=== PATIENT | male | born 1975 | race Caucasian/White ===

== ENCOUNTER 2023-05-11 11:19 | Emergency (ER) | payer BC, MEDICAID, SELFPAY ==
[2023-05-11 11:56] VITALS: BP 143/96; PULSE 73; RESP 16; TEMP 36.9; O2SAT 99
--- NOTE | 2023-05-11 12:12 | ED.BACK1 ---
HPI - Back Pain/Injury General Chief Complaint: Back Pain/Injury Stated Complaint: BACK PAIN Time Seen by Provider: 05/11/23 12:06 Source: patient Mode of arrival: walk-in Limitations: no limitations History of Present Illness HPI Narrative: pain along the right lower back. 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 he said he has been very busy and working extra hours. He saw Lydia Manuel about 3 weeks ago and was diagnosed with back strain. He had blood testing that was unremarkable, including renal panel bc his bother has renal disease. No meds prescribed. Pain flared up a few days ago and has been increased since then. No bowel or bladder symptoms. No fever or chills. No abdominal pain. Related Data Home Medications Medication Instructions Recorded Confirmed gabapentin 600 mg tablet 600 mg PO Q12H 05/11/23 05/11/23 lamotrigine 200 mg tablet 300 mg PO DAILY 05/11/23 05/11/23 lurasidone 80 mg tablet 80 mg PO DAILY 05/11/23 05/11/23 sertraline 50 mg tablet 50 mg PO Q24H 05/11/23 05/11/23 Previous Rx's Medication Instructions Recorded methocarbamol 750 mg tablet 750 mg PO Q6H PRN back pain #30 05/11/23 tabs nabumetone 1,000 mg tablet 1,000 mg PO BID #20 tabs 05/11/23 (Relafen DS) Allergies Allergy/AdvReac Type Severity Reaction Status Date / Time prednisone Allergy Severe Agitated Verified 05/11/23 11:56 Exam Narrative Exam Narrative: Nurses notes and vital signs reviewed and patient is not hypoxic. afebrile General: Well-appearing and in no apparent distress. Skin: Warm, dry, no pallor noted. No rash. Head: Normocephalic, atraumatic. Neck: Supple, non-tender. Eye: Pupils are equal, round and EOMI. No scleral icterus. Cardiovascular: normal peripheral perfusion Respiratory: No accessory muscle use or respiratory distress. Back: No midline thoracic or lumbar vertebral tenderness. No CVA tenderness. Right paralumbar soft tissue tenderness. No skin rash. Donte buttock tenderness Musculoskeletal: normal ROM GI: Abdomen is soft, non-distended. Normal bowel sounds. No masses appreciated. No tenderness to palpation. No rebound, guarding, or rigidity noted. No rash Neurological: A&O x4. No cranial nerve dysfunction observed. No truncal ataxia. Moves all extremities. Sensation intact. Intact L5 and S1 reflexes Psychiatric: Cooperative and interactive. Normal mood and affect. Constitutional Vital Signs - 24 hr 05/11/23 11:56 Temperature 98.5 F Pulse Rate [Monitor] 73 Respiratory Rate 16 Blood Pressure [Left Arm] 143/96 H Pulse Oximetry 99 Oxygen Delivery Method Room Air Course Vital Signs Vital signs: Vital Signs Temperature 98.5 F 05/11/23 11:56 Pulse Rate 73 05/11/23 11:56 Respiratory Rate 16 05/11/23 11:56 Blood Pressure 143/96 H 05/11/23 11:56 Pulse Oximetry 99 05/11/23 11:56 Oxygen Delivery Method Room Air 05/11/23 11:56 Temperature 98.5 F 05/11/23 11:56 Pulse Rate 73 05/11/23 11:56 Respiratory Rate 16 05/11/23 11:56 Blood Pressure 143/96 H 05/11/23 11:56 Pulse Oximetry 99 05/11/23 11:56 Oxygen Delivery Method Room Air 05/11/23 11:56 MDM - Back Pain/Injury MDM Narrative Medical decision making narrative: patient with strain of the right paralumbar soft tissue. No neuro deficit or midline vertebral tenderness to suggest acute cauda equina syndrome. No blunt trauma or midline tenderness suggesting need for imaging. No urinary symptoms or abdominal pain to suggest kidney stones. Patient and I discussed his history, exam findings and diagnosis. Discussed out-patient treatment and limitations for healing based on his needd to continue working an active job. Discharged home with prescriptions for Relafen and Robaxin and information of back exercises and core strengthening. PCP follow up encouraged. Discharge Plan Discharge Chief Complaint: Back Pain/Injury Clinical Impression: Strain of lumbar region Patient Disposition: Home, Self-Care Time of Disposition Decision: 12:11 Prescriptions / Home Meds: New Relafen DS 1,000 mg tablet 1,000 mg PO BID Qty: 20 0RF methocarbamol 750 mg tablet 750 mg PO Q6H PRN (Reason: back pain) Qty: 30 0RF No Action gabapentin 600 mg tablet 600 mg PO Q12H lamotrigine 200 mg tablet 300 mg PO DAILY lurasidone 80 mg tablet 80 mg PO DAILY sertraline 50 mg tablet 50 mg PO Q24H Instructions: Low Back Strain (ED), Lower Back Exercises (ED), Core Strengthening Exercises (ED) Stand Alone Forms: Portal Instructions Referrals: Lydia Manuel [Primary Care Provider] - 1 week
== END 2023-05-11 12:43 | disposition home or self-care (01) ==
PROVIDERS: Emergency Provider Emergency Medicine; PCP Nurse Practitioner
DX: S39.012A Strain of muscle, fascia and tendon of lower back, initial encounter (principal); X50.9XXA Other and unspecified overexertion or strenuous movements or postures, initial encounter; Z79.899 Other long term (current) drug therapy
CPT/HCPCS: 99283

== ENCOUNTER 2024-07-09 15:59 | Emergency (ER) | payer BC, MEDICAID, SELFPAY ==
[2024-07-09 16:05] VITALS: BP 117/78; PULSE 78; TEMP 36.6; O2SAT 98; BMI 32.5
--- NOTE | 2024-07-09 16:12 | ED.DENTAL1 ---
HPI - Dental/Oral General Chief complaint: Dental/Oral Stated complaint: DENTAL Time Seen by Provider: 07/09/24 16:09 Source: patient Mode of arrival: walk-in Limitations: no limitations History of Present Illness HPI Narrative: 49 year old male presents to the ED for right lower dental pain. Onset was 2 days ago. He had a tooth extracted from the area 2 weeks ago. Reports some relief with ice. Denies fever, chills, injury, SOB, difficulty swallowing. He has an appointment tomorrow with his dentist. He has tried Motrin and Aleve without relief; last dose was early this morning. Related Data Home Medications ?Medication ?Instructions ?Recorded ?Confirmed gabapentin 600 mg tablet 600 mg PO Q12H 05/11/23 05/11/23 lamotrigine 200 mg tablet 300 mg PO DAILY 05/11/23 07/09/24 lurasidone 80 mg tablet 80 mg PO DAILY 05/11/23 07/09/24 sertraline 50 mg tablet 50 mg PO Q24H 05/11/23 07/09/24 Previous Rx's ?Medication ?Instructions ?Recorded methocarbamol 750 mg tablet 750 mg PO Q6H PRN back pain #30 05/11/23 tabs nabumetone 1,000 mg tablet 1,000 mg PO BID #20 tabs 05/11/23 (Relafen DS) hydrocodone 5 mg-acetaminophen 325 1 tab PO Q8H PRN pain 4 days #12 07/09/24 mg tablet tabs penicillin V potassium 500 mg 500 mg PO Q6H 10 days #40 tabs 07/09/24 tablet Allergies Allergy/AdvReac Type Severity Reaction Status Date / Time prednisone Allergy Severe Agitated Verified 07/09/24 16:04 Review of Systems ROS Constitutional Denies: fever or chills Eyes Denies: change in vision Ears, nose, mouth, and throat Denies: throat pain, neck pain or difficulty swallowing Cardiovascular Denies: chest pain Respiratory Denies: shortness of breath Musculoskeletal Denies: neck pain Neurological Denies: headache Exam Constitutional Vital Signs, click to edit/add: Last Vital Signs Temp 97.9 F 07/09/24 16:05 Pulse 78 07/09/24 16:05 Resp 20 07/09/24 16:05 BP 117/78 07/09/24 16:05 Pulse Ox 98 07/09/24 16:05 HENMT Face and sinus: normal facial exam Other: Tooth extraction site to right lower gums noted. Mild swelling, irritation noted. No drainable abscess. No facial swelling. No swelling to floor of mouth. Pt speaking in full sentences, handling secretions well. Eye Common normals: conjunctivae normal and no scleral icterus Neck & C-Spine Common normals: supple Chest Chest: symmetrical chest wall rise Respiratory Common normals: normal respiratory effort Effort & inspection: able to speak in complete sentences Cardio Common normals: regular rate Neuro Common normals: oriented x3 Sensorium/orientation: awake and alert Speech: speech normal Course Vital Signs Vital signs: Vital Signs Temperature 97.9 F 07/09/24 16:05 Pulse Rate 78 07/09/24 16:05 Respiratory Rate 20 07/09/24 16:05 Blood Pressure 117/78 07/09/24 16:05 Pulse Oximetry 98 07/09/24 16:05 Temperature 97.9 F 07/09/24 16:05 Pulse Rate 78 07/09/24 16:05 Respiratory Rate 20 07/09/24 16:05 Blood Pressure 117/78 07/09/24 16:05 Pulse Oximetry 98 07/09/24 16:05 MDM - Dental/Oral MDM Narrative Medical decision making narrative: OARRS review was attempted, but was unavailable. Prescriptions were provided for PCN and norco. Follow up with the dentist tomorrow as scheduled. He was medicated with Toradol and PCN here. Return precautions were discussed. Differential Diagnosis Differential diagnosis: Likely gingival abscess, dental caries, toothache and dental abscess Discharge Plan Discharge Stand Alone Forms: Work/School Release, Portal Instructions Chief Complaint: Dental/Oral Clinical Impression: Pain, dental Patient Disposition: Home, Self-Care Time of Disposition Decision: 16:18 Condition: Good Mode of Transportation: Private Vehicle Prescriptions / Home Meds: New penicillin V potassium 500 mg tablet 500 mg PO Q6H 10 Days Qty: 40 0RF hydrocodone-acetaminophen 5-325 mg tablet 1 tab PO Q8H PRN (Reason: pain) 4 Days Qty: 12 0RF No Action gabapentin 600 mg tablet 600 mg PO Q12H lamotrigine 200 mg tablet 300 mg PO DAILY lurasidone 80 mg tablet 80 mg PO DAILY sertraline 50 mg tablet 50 mg PO Q24H Relafen DS 1,000 mg tablet 1,000 mg PO BID Qty: 20 0RF methocarbamol 750 mg tablet 750 mg PO Q6H PRN (Reason: back pain) Qty: 30 0RF Print Language: Belarusian Instructions: Toothache (ED) Additional Instructions: Return to the ED for new or worsening symptoms. Follow up with your dentist tomorrow as scheduled. Referrals: SANDRA BRUNO [Primary Care Provider] - 1 week Discharge Date/Time: 07/09/24 16:35
[2024-07-09] MEDS: KETOROLAC TROMETHAMINE 30 MG/ML VIAL IM (16:24)
[2024-07-09] MEDS: PENICILLIN V POTASSIUM 250 MG TABLET 500 MG PO (16:24)
== END 2024-07-09 16:35 | disposition home or self-care (01) ==
PROVIDERS: Emergency Provider Emergency Medicine; PCP Family Medicine
DX: K08.89 Other specified disorders of teeth and supporting structures (principal)
CPT/HCPCS: 96372; 99284; J1885

== ENCOUNTER 2025-01-07 08:40 | Outpatient (OUT) | payer BC, MEDICAID, SELFPAY ==
--- NOTE | 2025-01-07 08:54 | XR_ITS ---
The [address] [address] Patient Name: CASA ANDERSON MRN: [id number] date: 1975 Sex: M Assigned Patient Location: RAD Current Patient Location: [facility] Accession/Order Number: [id number] Exam Date: 01/07/2025 10:28 Report Date: 01/07/2025 10:32 At the request of: SANDRA BRUNO Procedure: XR hand RT min 3V RIGHT HAND - 3 views CLINICAL DATA: Chronic pain at the third metacarpal phalangeal joint. No injury. COMPARISON: None AP, lateral and oblique views were obtained. There is no evidence of fracture or dislocation. No disproportionate joint space narrowing is noted. There is minor scattered marginal spurring, greatest at the base of the distal phalanx of the fifth finger. Soft tissue swelling is visualized over the dorsum of the metacarpal heads. XR/XR hand RT min 3V IMPRESSION: MINOR DEGENERATIVE CHANGES. LOCALIZED SOFT TISSUE SWELLING OVER THE METACARPAL HEADS. NO ACUTE BONY FINDINGS. Impression dictated by: Lucie An M.D.01/07/2025 10:32 AM Dictation Location: [employer] Electronically authenticated by: [id number] Date: 01/07/2025 10:32
--- OUTSIDE RECORDS SUMMARY | 2025-01-07 09:02 | XMS_ITS | CCD ---
Author Organization [facility] Care Team Providers Care City Planning Engineer Name Role Phone MICHAEL RUIZ Unavailable Unavailable MINH BRUNO Unavailable Unavailable HARSHA BELLA Referring Unavailable MINH BRUNO Primary Care Unavailable GAMA MERCEDES Attending Unavailable GAMA MERCEDES Admitting Unavailable SC Procedure Practitioner Unavailab le GAMA MERCEDES Surgeon Unavailable SC Procedure Practitioner Unavailab CHARLI Sagastume Surgeon Unavailable HARESH CAZARES Admitting Unavailable HARESH CAZARES Attending Unavailable MINH BRUNO Referring Unavailable MINH BRUNO Primary Care Unavailable Nasra London Unavailable Rea Soares Unavailable AICHHOLBret, YUN LYDIA Attending Unavailable AICHHOLZ, YUN LYDIA Consulting Unavailable AICHHOLZ, YUN LYDIA Primary Care Unavailable AICHHOLBret, YUN LYDIA Admitting Unavailable Miko Sr.Minh [facility] Provider Nasra London CNP Unavailable HOUSE MINH LAY [facility] VLADIMIR Lewis Referring Unavailable VLADIMIR WILLIS Attending Unavailable HOUSE SR, MINH [facility] VLADIMIR Lewis Referring Unavailable WILMOT MINH LAY [facility] Rula Pompa Unavailable House Sr., Minh MOODY [facility] Prov ider Unallocated , [place] Provider Primary Care Provi magdi Stepan CHEMIST PHARMACEUTICAL-Kait NASCIMENTO Unavailable Unallocated , [place] Provider Primary Care Provi magdi Ana-Nossek CHEMIST PHARMACEUTICAL-CLINICAL STAFF RN, Kait M Unavailable Ana-Nossek CHEMIST PHARMACEUTICAL-CLINICAL STAFF RN, Kait M Unavailable ANA-NOSSEK, KAIT M Attending Unavailab le ANA-NOSSEK, KAIT M Attending Unavailab le ANA-NOSSEK, KAIT M Attending Unavailab le ANA-NOSSEK, KAIT M Attending Unavailab le ANA-NOSSEK, KAIT M Attending Unavailab le ANA-NOSSEK, KAIT M Attending Unavailab le ANA-NOSSEK, KAIT M Attending Unavailab le ANA-NOSSEK, KAIT M Attending Unavailab le ANA-NOSSEK, KAIT M Attending Unavailab le HOUSE, MINH P Primary Care Unavailable HOUSE, DO MINH P Attending Unavailable HOUSE, DO MINH P Attending Unavailable HOUSE, MINH P Primary Care Unavailable HOUSE, DO MINH P Attending Unavailable HOUSE, MINH P Primary Care Unavailable Allergies Allergy Classification Reported Allergen(s) Allergy Type Date of Onset Reaction(s) Facility (3 sources) predniSONE; Translations: [predniSONE] Drug Allergy 0 [facility] Repository (8 sources) prednisoLONE; Translations: [PREDNISOLONE] Drug Allergy 6 Mental Status Change [facility] Work Phone: (12 sources) Prednisone Allergy to substance 3 [facility] Medications Current Medications Medication Drug Class(es) Dates Sig (Normalized) Sig (Original) [id number] 200 actuat albuterol 0.09 mg/actuat metered dose inhaler (1 source) beta2-Adrenergic Agonist Start: 07-30-2021 take 2 puff(s) by inhalation every four hours as needed Albuterol Sulfate HFA 108 (90 Base) MCG/ACT 2 puffs as needed Inhalation every 4 hrs Jul, Active ALPRAZolam 0.5 mg oral tablet (17 sources) Benzodiazepine Start: 04-07-2022 End: 11-14-2024 take 1 tablet by mouth every twenty-four hours as needed for anxiety and anxiety and anxiety ALPRAZolam (Xanax) 0.5 MG tablet Indications: Anxiety Take 1 tablet (0.5 mg) by mouth Daily as needed for anxiety (1 tablet daily prn) 30 tablet 10/15/2024 Active take 1 tablet by mirtha th every twenty-four hours as needed ALPRAZolam (XANAX) 1 mg ORAL tablet Take 1 mg by mouth at bedtime as needed. 0 Active Comment on above: Take 1 mg by mouth a t bedtime as needed. 24 hr amphetamine aspartate 5 mg / amphetamine sulfate 5 mg / dextroamphetamine saccharate 5 mg / dextroamphetamine sulfate 5 mg extended release oral capsule (11 sources) Central Nervous System Stimulant Start: 10-22-20 take 1 capsule by mouth every twenty-four hours in the morning amphetamine-dextroam phetamine XR (Adderall XR) 20 MG 24 hr capsule Indications: ADD (attention deficit disorder) without hyperactivity Take 1 capsule (20 mg) by mouth in the morning. Do not crush or chew.. 30 capsule 10/22/2024 Active take 1 capsule by mo uth once daily as needed, then take 1 capsule by mouth every twenty-four hours as needed amphetamine-dextroamphetamine XR (Addera ll XR) 20 MG 24 hr capsule Take 20 mg by mouth Daily as needed Do not crush or chew. Active doxycycline monohydrate 100 mg oral capsule (1 source) Tetracycline-class Drug Start: 08-13-2021 take 1 capsule by mouth every twelve hours Doxycycline Monohydrate 100 MG 1 capsule Orally every 12 hrs for 7 days Jul, Active 120 actuat fluticasone propionate 0.22 mg/actuat metered dose inhaler (1 source) Corticosteroid Start: 08-17-2021 take 1 puff(s) by inhalation twice daily Flovent HFA 220 MCG/ACT 1 puff Inhalation Twice a day for 30 day(s) Aug, Active lamoTRIgine 200 mg oral tablet (20 sources) Mood Stabilizer, Anti-epileptic Agent Start: 12-13-2024 End: 03-13-2025 take 1.5 tablets by mouth once daily lamoTRIgine (LaMICtal) 200 MG tablet Indications: Bipolar 1 disorder, depressed, partial remission (CMS/HCC) Take 1.5 tablets (300 mg) by mouth Daily 135 tablet 12/13/2024 03/13/2025 Active Start: 02-13-2024 End: 12-09-2024 take 1.5 tablets by mouth once daily lamoTRIgine (LaMICtal) 200 MG tablet Indications: Bipolar 1 disorder, depressed, partial remission (CMS/HCC) Take 1.5 tablets (300 mg) by mouth Daily 135 tablet 07/18/2024 10/16/2024 Active take 1 tablet by mirtha th once daily lamoTRIgine (LAMICTAL) 200 mg tablet Take 200 mg by mouth once daily. 0 Active lamoTRIgine Acti ve Comment on above: Take 200 mg by mouth once daily. lurasidone hydrochloride 80 mg oral tablet (20 sources) Atypical Antipsychotic Start: 12-13-19 End: 03-13-20 take 1 tablet by mouth at mealtime lurasidone (Latuda) 80 MG tablet Indications: Bipolar 1 disorder, depressed, partial remission (CMS/HCC) Take 1 tablet (80 mg) by mouth in the morning. Take with meals. 90 tablet 12/13/2024 03/13/2025 Active Start: 02-13-2024 End: 12-09-2024 take 1 tablet by mouth at mealtime lurasidone (Latuda) 80 MG tablet Indications: Bipolar 1 disorder, depressed, partial remission (CMS/HCC) Take 1 tablet (80 mg) by mouth in the morning. Take with meals. 90 tablet 07/18/2024 10/16/2024 Active take 1 tablet by mirtha th once daily lurasidone (LATUDA) 40 mg tablet Take 40 mg by mouth once daily. 0 Active take 1 tablet by mirtha th every twenty-four hours Latuda 80 MG 1 tablet Orally Once a day Active Comment on above: Take 40 mg by mouth once daily. sertraline 100 mg oral tablet (19 sources) Serotonin Reuptake Inhibitor Start: 09-10-2024 End: 09-10-2025 take 1 tablet by mouth once daily sertraline (Zoloft) 100 MG tablet Indications: Bipolar 1 disorder, depressed, partial remission (CMS/HCC) Take 1 tablet (100 mg) by mouth Daily 90 tablet 12/13/2024 03/13/2025 Active Start: 02-13-2024 End: 10-16-2024 take 1 tablet by mouth once daily sertraline (Zoloft) 50 MG tablet Indications: Mixed obsessional thoughts and acts (CMS/HCC) Take 1 tablet (50 mg) by mouth Daily 90 tablet 07/18/2024 10/16/2024 Active take 1 tablet by mirtha th once daily Sertraline HCl 50 MG 1 tablet Orally Once a day Not-Taking traZODone (1 source) Serotonin Reuptake Inhibitor traZODone HCl Active valACYclovir (1 source) Herpesvirus Nucleoside Analog DNA Polymerase Inhibitor, Herpes Simplex Virus Nucleoside Analog DNA Polymerase Inhibitor, Herpes Zoster Virus Nucleoside Analog DNA Polymerase Inhibitor valACYclovir HCl Ac tive zaleplon 10 mg oral capsule (5 sources) gamma-Aminobutyric Acid A Receptor Agonist Start: 09-10-2024 End: 11-09-2024 zaleplon (Sonata) 10 MG capsule Indications: Insomnia due to mental condition Take 1 capsule (10 mg) by mouth as needed at bedtime for sleep 30 capsule 1 09/10/2024 11/09/2024 Active Completed/Discontinued Medications Medication Drug Class(es) Dates Sig (Normalized) Sig (Original) azithromycin 250 mg oral tablet (1 source) Macrolide Antimicrobial Start: 07-30-2021 Azithromycin 250 MG 2 tablets on the first day, then 1 tablet daily for 4 days Orally Once a day for 5 day(s) Jul, Not-Taking cefuroxime 500 mg oral tablet (1 source) Cephalosporin Antibacterial Start: 07-30-2021 take 1 tablet by mouth every twelve hours Cefuroxime Axetil 500 MG 1 tablet Orally every 12 hrs for 7 days Jul, Not-Taking eszopiclone 3 mg oral tablet (3 sources) Start: 06-14-2024 End: 07-18-2024 eszopiclone (Lunesta) 3 MG tablet Indications: Insomnia due to mental condition Take 1 tablet (3 mg) by mouth as needed at bedtime for sleep Take immediately before bedtime 30 tablet 1 06/14/2024 07/18/2024 Discontinued (Ineffective) gabapentin 300 mg oral capsule (7 sources) Anti-epileptic Agent take 1 capsule by mouth three times daily gabapentin (NEURONTIN) 300 mg capsule Take 300 mg by mouth three times daily. 0 Active take 1 tablet by mirtha th every twelve hours Gabapentin 600 MG 1 tablet Orally bid Active Gabapentin Activ e Comment on above: Take 300 mg by mouth three times daily. ibuprofen 800 mg oral tablet (3 sources) Nonsteroidal Anti-inflammatory Drug Start: 6 take 1 tablet by mouth every eight hours as needed ibuprofen (MOTRIN) 800 mg tablet Take 1 tablet by mouth every 8 hours as needed (with food.). 90 tablet 2 12/18/2015 Active Comment on above: Take 1 tablet by mirtha every 8 hours as needed (with food.). Ketorolac (1 source) Nonsteroidal Anti-inflammatory Drug, Cyclooxygenase Inhibitor Start: 6 Toradol per 15 mg May, 30 mg triamcinolone acetonide 40 mg/ml injectable suspension (1 source) Corticosteroid Start: 3 Kenalog-40 Jun, 80 mg Problems Active Problems Problem Classification Problem Date Documented Date Episodic/Chronic Allergic reactions (1 source) Unspecified contact dermatitis, unspecified cause Episodic Anxiety disorders (20 sources) Obsessional thoughts; Translations: [Mixed obsessional thoughts and acts] Onset: 03-22-2023 03-22-2023 Chronic Disorders usually diagnosed in infancy, childhood, or adolescence (16 sources) Attention deficit hyperactivity disorder, predominantly inattentive type; Translations: [Other specified behavioral and emotional disorders with onset usually occurring in childhood and adolescence] Onset: 03-22-2023 03-22-2023 Chronic Malaise and fatigue (1 source) Other fatigue; Translations: [OTHER FATIGUE] Onset: 03-24-2023 Episodic Miscellaneous mental health disorders (20 sources) Inhibited sexual desire; 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] Onset: 05-14-2024 05-14-2024 Chronic Mood disorders (20 sources) Depressed bipolar I disorder in partial remission; Translations: [Bipolar disorder, in partial remission, most recent episode depressed] Onset: 03-22-2023 03-22-2023 Chronic Other connective tissue disease (7 sources) Biceps tendinitis; Translations: [Bicipital tendinitis, left shoulder] Onset: 03-24-2016 03-24-2016 Episodic Other endocrine disorders (4 sources) Hypotestosteronism; Translations: [Testicular hypofunction] Chronic Other endocrine disorders (4 sources) Testicular hypofunction; Translations: [TESTICULAR HYPOFUNCTION] Onset: 03-21-2023 Chronic Other lower respiratory disease (3 sources) Post-inflammatory pulmonary fibrosis; Translations: [Pulmonary fibrosis, unspecified] Chronic Other lower respiratory disease (1 source) Pulmonary fibrosis, unspecified Onset: 10-07-2021 Resolved: 10-07-2021 Chronic Other male genital disorders (1 source) Male erectile dysfunction, unspecified; Translations: [Male erectile dysfunction, unspecified] Onset: 10-02-2018 Chronic Other nervous system disorders (1 source) Other chronic pain; Translations: [Chronic pain of left elbow] Onset: 06-06-2023 Chronic Other non-traumatic joint disorders (1 source) Pain in left elbow; Translations: [Chronic pain of left elbow] Onset: 06-06-2023 Episodic Other non-traumatic joint disorders (1 source) Chronic pain of left upper limb; Translations: [Pain in left elbow] 06-06-2023 Episodic Other nutritional; endocrine; and metabolic disorders (1 source) Obesity, unspecified; Translations: [OBESITY UNSPECIFIED] Onset: 03-24-2023 Chronic Residual codes; unclassified (1 source) Pain, unspecified; Translations: [Pain] Onset: 06-06-2023 Episodic Residual codes; unclassified (1 source) Pain; Translations: [Pain, unspecified] 06-06-2023 Episodic Unclassified (2 sources) Male erectile dysfunction, unspecified / N52.9(ICD-9) Onset: 10-02-2018 Unclassified (1 source) Abnormal electrocardiogram [ECG] [EKG] / R94.31(ICD-9) Onset: 10-02-2018 Unclassified (1 source) Personal history of other diseases of the circulatory system / Z86.79(ICD-9) Onset: 10-02-2018 Unclassified (1 source) Family hx of ischem heart dis and oth dis of the circ sys / Z82.49(ICD-9) Onset: 10-02-2018 Unclassified (1 source) Personal history of nicotine dependence / Z87.891(ICD-9) Onset: 10-02-2018 Past or Other Problems Problem Classification Problem Date Documented Date Episodic/Chronic Mood disorders (12 sources) Mood disorders Onset: 05-24-2023 05-24-2023 Other connective tissue disease (1 source) Bicipital tendinitis, left shoulder; Translations: [Biceps tendinitis on left] Onset: 03-24-2016 Episodic Pneumonia (except that caused by tuberculosis or sexually transmitted disease) (1 source) Pneumonia, unspecified organism; Translations: [Postobstructive pneumonia J18.9] Onset: 08-13-2021 Resolved: 08-13-2021 Episodic Residual codes; unclassified (12 sources) History of noncompliance with medication regimen; Translations: [History of medication noncompliance] Onset: 05-03-2024 05-03-2024 Episodic Sprains and strains (3 sources) Strain of biceps brachii muscle; Translations: [Strain of muscle, fascia and tendon of other parts of biceps, unspecified arm, initial encounter] Onset: 11-27-2015 11-27-2015 Episodic Unclassified (1 source) 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 Patient tolerated well. No adverse reactions. [Electronically Signed on: 01/03/2025 10:46 EST] Lucy Candelaria MA [Verified on: 01/03/2025 10:46 EST] Lucy Candelaria MA [facility] Outside Recordson 07-10-2024 Outside Records [id number] [facility]24 Patient Handout [id number] Patient Handout [id number]# 1[facility] CNOV Office Visit (ORAVON ) CASA ANDERSON ([id number]) 1975 M Date Time Provider Department 06/06/23 9:45 AM VLADIMIR WILLIS During your visit today, we recorded the following information about you: Weight Height 122.5 kg 1.829 m Vladimir Willis DO 06/06/2023 9:50 AM Signed [facility] Office Visit Documentation Note [facility] Sports Medicine Orthopaedic and Rheumatologic [place] HISTORY OF PRESENT ILLNESS (HPI) CHIEF COMPLAINT / REASON FOR VISIT SERVICE DATE: June 06, 2023 PCP: Lydia Manuel CNP Casa Anderson is here today at request of Lydia Manuel CNP specifically for consultation of my opinion in regards to the chief complaint listed below. Correspondence will be shared today via the [facility] electronic health record or through regular mail, where applicable. 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 He describes the pain as Sharp, Throbbing. The pain is Intermittent, and has lasted for 11 Months. Interventions tried include Medication. Charan. He is currently taking ibuprofen. Most recent elbow imaging was completed on 06/06/2023 (XR ELBOW SPECIAL VIEWS AP/LAT/OTHER LEFT) . PREVIOUS TREATMENTS: Treatments so far have included no medications, physical therapy, injections, bracing, advanced imaging or surgical evaluation. REVIEW OF SYSTEMS ROS: Neurologic: Any numbness or tingling? No Endocrine: Any diagnosis of diabetes? No ALLERGIES ALLERGIES Allergen Reactions Prednisolone Mental Status Change PAST MEDICAL HISTORY PAST MEDICAL HISTORY Diagnosis Date Generalized anxiety disorder Anxiety, Generalized PHYSICAL EXAMINATION Body Habitus: well nourished and no acute distress Psych: normal Sensation: sensation to light touch is grossly normal bilaterally Skin: Color, texture, turgor normal. No rashes or lesions Swelling: no swelling noted Gait: Normal, the patient did not have trouble getting onto the exam table. ORTHO EXAM: Ortho Exam Elbow extension to 7-10 degree loss Pain anterior bicep/distal Hook negative but painful No proximal bicep pain No posterior tricep pain or weakness. Medial and lateral elbow stable IMAGING/LABORATORY IMAGING: Final results and radiologist's interpretation, available in the [facility] health record. Images were reviewed with the patient/family members in the office today. My personal interpretation of the performed imaging is chronic degenerative changes. Last XR Elbow - Impression Only XR ELBOW SPECIAL VIEWS AP/LAT/OTHER LEFT Exam End: 06/06/2023 8:51 AM (Final result) Impression: IMPRESSION: No fracture or malalignment. Joint spaces are maintained. There are enthesophytes at the common flexor tendon origin and triceps insertion. Manager Software Development: OLINDA ... Last US Elbow - Impression Only US ELBOW RT Collected: 03/01/2016 10:13 AM (Final result) Impression: IMPRESSION: Bilateral distal biceps tendinosis as described. No high-grade tearing. Manager Software Development: LAUREN Transcribe Date/Time: Mar 01 2016 10:19A ... 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 MSK US anterior bicep - warranted at this time. Successful RIGHT elbow PRP in past Follow up: Lives [place] For [employer] prior to visit: No additional imaging warranted. Written instructions (see patient instructions) and verbal health education given to patient. Patient verbalizes understanding and agrees with the treatment plan. Vladimir Willis D.O. [facility] Orthopaedic and Rheumatologic Dental Office Manager, [facility] AND Liza. Program Team Physician, [facility] [employer] Consulting Physician, [place] Katina Recinos, Bd Special Education Teacher [phone] Allergies As of Date: 06/06/2023 Noted Allergy Reaction PREDNISOLONE 11/27/2015 1 - Mental Status Change Date Reviewed: 06/06/2023 Reviewed by: Bryant Ashby-JASON Webber - Fully Assessed Reason for Visit: New [[id number]] Primary Visit Diagnosis:Bic (more content not included)... Normal [facility] US ELBOW LEFTon 06-06-2023 [facility] US ELBOW LTon 06-06-2023 US ELBOW LT * * *Final Report* * * DATE OF EXAM: Jun 06 2023 10:19AM AFU 1133 - US ELBOW LT / PROCEDURE REASON: multiple diagnoses * * * * Physician Interpretation * * * * MSK_US LEFT ANTERIOR ELBOW ULTRASOUND: Clinical information:Left distal biceps pain. Technique: Grayscale, power Doppler and dynamic evaluation of the left anterior elbow. Static ultrasound images were documented. Findings: ELBOW JOINT SPACE: No joint effusion. Joint space is grossly maintained. BICEPS TENDON: Tendinosis: Moderate focally at the insertion. Tearing: Minimal intrasubstance fraying medially. Power Doppler: None. Bony Attachment: No hypertrophic changes. RADIAL NERVE: Normal ultrasound appearance of the posterior interosseous nerve. Normal ultrasound appearance of the superficial radial nerve. MUSCLES: The musculature around the anterior elbow is unremarkable. IMPRESSION: MODERATE INSERTIONAL DISTAL BICEPS TENDINOSIS WITHOUT HYPEREMIA OR HIGH-GRADE TEAR. Manager Software Development: PSCB Transcribe Date/Time: Jun 06 2023 10:56A Dictated by : CASA PHAN MD This examination was interpreted and the report reviewed and electronically signed by: CASA PHAN MD on Jun 06 2023 11:30AM EST [id number] Normal [facility] XR ELBOW 3V AP/LAT/OTHER LTo n 06-06-2023 XR ELBOW 3V AP/LAT/OTHER LT * * *Final Report* * * DATE OF EXAM: Jun 06 2023 8:51AM AFR [id number] - XR ELBOW 3V AP/LAT/OTHER LT / PROCEDURE REASON: Pain * * * * Physician Interpretation * * * * EXAMINATION / TECHNIQUE: XR ELBOW 3V AP/LAT/OTHER LT HISTORY: LEFT ELBOW PAIN SINCE JUL 2022 POST ROLLING A LOG Pain COMPARISON: 11/27/2015. RESULT: See impression. IMPRESSION: No fracture or malalignment. Joint spaces are maintained. There are enthesophytes at the common flexor tendon origin and triceps insertion. Manager Software Development: OLINDA Transcribe Date/Time: Jun 06 2023 8:53A Dictated by : ART LOUIS MD This examination was interpreted and the report reviewed and electronically signed by: ART LOUIS MD on Jun 06 2023 8:54AM EST [id number] Normal [facility] XR ELBOW SPECIAL VIEWS AP/LA T/OTHER LEFTon 06-06-2023 [facility] CNPNon 03-28-2023 CNPN Telephone (4CQ) CASA ANDERSON ([id number]) 1975 M Date Time Provider Department 03/28/23 VLADIMIR WILLIS 4CQ During your visit today, we recorded the following information about you: uSe Fleming 03/28/2023 1:18 PM Signed Casa Anderson is calling Vladimir Willis DO today with concern regarding a referral that was faxed on 03/21 from Lydia Deng at [facility]. Wants to confirm it was received. Please call [phone] to confirm. No chief complaint on file. Patient has been identified by name and birthdate. Duration of symptoms: Person calling: Call patient at: [phone] (home) [phone] (work) [phone] (cell) Was an appointment scheduled: Closing statement: Sue Shearer RN 04/13/2023 11:27 AM Signed No answer upon call. message left. Consult on file. Appointment can be made by calling [phone] Elías Shearer RN, BSN Allergies As of Date: 03/28/2023 Noted Allergy Reaction PREDNISOLONE 11/27/2015 1 - Mental Status Change Date Reviewed: 05/01/2021 Reviewed by: Eligio Gutierrez - Fully Assessed Reason for Visit: Appointment [[id number]] Prescriptions as of 04/13/2023 - gabapentin (NEURONTIN) 300 mg capsule Take 300 mg by mouth three times daily. - lamoTRIgine (LAMICTAL) 200 mg tablet Take 200 mg by mouth once daily. - lurasidone (LATUDA) 40 mg tablet Take 40 mg by mouth once daily. - ibuprofen (MOTRIN) 800 mg tablet Take 1 tablet by mouth every 8 hours as needed (with food.). - ALPRAZolam (XANAX) 1 mg ORAL tablet Take 1 mg by mouth at bedtime as needed. Problem List As Of Date 03/28/2023 Noted Resolved Admission for reversal of vasectomy [Z31.0] 04/18/2012 Biceps muscle strain [S46.219A] 11/27/2015 Biceps tendinitis on left [M75.22] 03/24/2016 Biceps tendinitis on right [M75.21] 03/24/2016 Encounter Status:Closed by ELÍAS SHEARER on 04/13/23 Normal [facility] TESTOSTERONE, FREE,DIRECT, T KAYLIEjoseph 03-23-2023 Free Testosterone(Direct ) 8.7 pg/mL Normal 6.8-21.5 [facility] Comment on above: Result Comment: Perf ormed at: BN Performed By: #### T ESTFRD #### [facility] [address] [place] [address] Dr. Tam Caba Testosterone [Mass/Vol] 356 ng/dL Normal [id number] [facility] Comment on above: Result Comment: Adul t male reference interval is based on a population of healthy nonobese males (BMI <30) between 19 and 39 years old. baltazar Laboy.al. JCEM 2017,102;5333-4754. PMID: [id number]. Performed at: CB Performed By: #### T ESTFRD #### [facility] [address] [place] [address] Dr. Tam Caba CBC AUTO DIFFon 03-21-2023 BASO # 0.1 103/ul Normal 0.0-0.1 [facility] Comment on above: Performed By: #### C BC #### [facility] [address] [place] [address] Dr. Tam Caba Basophils/100 WBC (Bld) 0.9 % Normal 0.2-2.0 [facility] Comment on above: Performed By: #### C BC #### [facility] [address] [place] [address] Dr. Tam Caba EO # 0.2 103/ul Normal 0.0-0.[address] [facility] Comment on above: Performed By: #### C BC #### [facility] [address] [place] [address] Dr. Tam Caba Eosinophils/100 WBC (Bld) 2.6 % Normal 0.9-7.0 [facility] Comment on above: Performed By: #### C BC #### [facility] [address] [place] [address] Dr. Tam Caba Erythrocyte distribution width (RBC) [Ratio] 12.6 % Normal 11.0-15.0 [facility] Comment on above: Performed By: #### C BC #### [facility] [address] [place] [address] Dr. Tam Caba Hematocrit (Bld) [Volume fraction] 45.2 % Normal 42.0-54.0 [facility] Comment on above: Performed By: #### C BC #### [facility] [address] [place] [address] Dr. Tam Caba Hemoglobin (Bld) [Mass/Vol] 15.9 g/dL Normal 14.0-18.[address] [facility] Comment on above: Performed By: #### C BC #### [facility] [address] [place] [address] Dr. Tam Caba IG # 0.05 10e3/ul Critically high 0.00-0.03 [facility] Comment on above: Performed By: #### C BC #### [facility] [address] [place] [address] Dr. Tam Caba IG % 0.6 % Critically high 0.0-0.5 [facility] Comment on above: Performed By: #### C BC #### [facility] [address] [place] [address] Dr. Tam Caba LYMPH # 1.5 103/ul Normal 1.2-3.[address] [facility] Comment on above: Performed By: #### C BC #### [facility] [address] [place] [address] Dr. Tam Caba Lymphocytes/100 WBC (Bld) 18.7 % Critically low 20.5-60.[address] [facility] Comment on above: Performed By: #### C BC #### [facility] [address] [place] [address] Dr. Tam Caba MANUAL DIFF REQ NO Normal [facility] Comment on above: Performed By: #### C BC #### [facility] [address] [place] [address] Dr. Tam Caba MCH (RBC) [Entitic mass] 32.4 pg Normal 25.9-34.0 [facility] Comment on above: Performed By: #### C BC #### [facility] [address] [place] [address] Dr. Tam Caba MCHC (RBC) [Mass/Vol] 35.2 g/dL Normal 29.9-35.[address] [facility] Comment on above: Performed By: #### C BC #### [facility] [address] [place] [address] Dr. Tam Caba MCV (RBC) [Entitic vol] 92.2 fL Normal 80.0-94.[address] [facility] Comment on above: Performed By: #### C BC #### [facility] [address] [place] [address] Dr. Tam Caba MONO # 0.5 103/ul Normal 0.3-0.[address] [facility] Comment on above: Performed By: #### C BC #### [facility] [address] [place] [address] Dr. Tam Caba Monocytes/100 WBC (Bld) 6.8 % Normal 1.7-12.0 [facility] Comment on above: Performed By: #### C BC #### [facility] [address] [place] [address] Dr. Tam Caba NEUT # 5.5 103/ul Normal 1.4-6.5 [facility] Comment on above: Performed By: #### C BC #### [facility] [address] [place] [address] Dr. Tam Caba Neutrophils/100 WBC (Bld) 70.4 % Normal 43.0-75.0 [facility] Comment on above: Performed By: #### C BC #### [facility] [address] [place] [address] Dr. Tam Caba Platelet mean volume (Bld) [Entitic vol] 9.5 fL Normal 9.5-13.5 [facility] Comment on above: Performed By: #### C BC #### [facility] [address] [place] [address] Dr. Tam Caba PLT 267 103/ul Normal 150-450 [facility] Comment on above: Performed By: #### C BC #### [facility] [address] [place] [address] Dr. Tam Caba RBC 4.90 106/ul Normal 4.70-6.10 [facility] Comment on above: Performed By: #### C BC #### [facility] [address] [place] [address] Dr. Tam Caba WBC 7.8 103/ul Normal 4.0-11.0 [facility] Comment on above: Performed By: #### C BC #### [facility] [address] [place] [address] Dr. Tam Caba GLYCOHEMOGLOBIN A1Con 2022 ADA RECOMMENDATION SEE BELOW Normal [facility] Comment on above: Result Comment: ADA RECOMMENDED LIMIT 4.0 - 6.0 ADA THERAPEUTIC TARGET < 7.0 ACTION SUGGESTED > 7.0 Performed By: #### A 1C #### [facility] [address] [address] [address] Tam Caba Glucose [Mass/Vol] 97 mg/dL Normal [facility] Comment on above: Performed By: #### A 1C #### [facility] [address] [address] [address] Tam Caba HbA1c (Bld) [Mass fraction] 5.0 % Normal 4.5-6.2 [facility] Comment on above: Performed By: #### A 1C #### [facility] [address] [address] [address] Tam Caba LIPID PROFILEon 03-21-2023 CHOL-HDL RATIO NORM SEE BELOW Normal [facility] Comment on above: Result Comment: 3.3 - 4.4 LOW RISK 4.4 - 7.1 AVERAGE RISK 7.1 - 11.0 MODERATE RISK >11.0 HIGH RISK Performed By: #### L IPID, TSH, CMP #### [facility] [address] [address] [address] Tam Caba Cholesterol [Mass/Vol] 180 mg/dL Normal <=200 [facility] Comment on above: Performed By: #### L IPID, TSH, CMP #### [facility] [address] [address] [address] Tam Caba Cholesterol in HDL [Mass/Vol] 74 mg/dL Critically high 40-60 [facility] Comment on above: Performed By: #### L IPID, TSH, CMP #### [facility] [address] [address] [address] Tam Caba Cholesterol in LDL [Mass/Vol] 96.8 mg/dL Normal [facility] Comment on above: Performed By: #### L IPID, TSH, CMP #### [facility] [address] [address] [address] Tam Caba Cholesterol.total/C holesterol in HDL [Mass ratio] 2.4 {ratio} Normal [facility] Comment on above: Performed By: #### L IPID, TSH, CMP #### [facility] [address] [address] [address] Tam Caba HDL NORMAL > or = 60 mg/dl - LO W CARDIOVASCULAR RISK <40 mg/dl - HIGH CARDIOVASCULAR RISK Normal [facility] Comment on above: Performed By: #### L IPID, TSH, CMP #### [facility] [address] [address] [address] Tam Caba LDL CALC NORMAL SEE BELOW Normal [facility] Comment on above: Result Comment: <100 mg/dl OPTIMAL 100 - 129 mg/dl NEAR OR ABOVE OPTIMAL 130 - 159 mg/dl BORDERLINE HIGH 160 - 189 mg/dl HIGH >190 mg/dl VERY HIGH Performed By: #### L IPID, TSH, CMP #### [facility] [address] [address] [address] Tam Caba Triglyceride [Mass/Vol] 46 mg/dL Normal <=150 [facility] Comment on above: Performed By: #### L IPID, TSH, CMP #### [facility] [address] [address] [address] Tam Caba VLDL CALC 9.2 mg/dL Normal [facility] Comment on above: Performed By: #### L IPID, TSH, CMP #### [facility] [address] [address] [address] Tam Caba PROF 14(COMP METB)on 023 Albumin [Mass/Vol] 3.7 g/dL Normal 3.4-5.0 [facility] Comment on above: Performed By: #### L IPID, TSH, CMP #### [facility] [address] [address] [address] Tam Caba Albumin/Globulin [Mass ratio] 1.2 {ratio} Normal [facility] Comment on above: Performed By: #### L IPID, TSH, CMP #### [facility] [address] [address] [address] Tam Caba ALP [Catalytic activity/Vol] 86 U/L Normal 46-116 [facility] Comment on above: Performed By: #### L IPID, TSH, CMP #### [facility] [address] [address] [address] Tam Caba ALT [Catalytic activity/Vol] 57 U/L Normal 16-63 [facility] Comment on above: Performed By: #### L IPID, TSH, CMP #### [facility] [address] [address] [address] Tam Caba Anion gap [Moles/Vol] 12.6 mmol/L Normal [facility] Comment on above: Performed By: #### L IPID, TSH, CMP #### [facility] [address] [address] [address] Tam Caba AST [Catalytic activity/Vol] 23 U/L Normal 15-37 [facility] Comment on above: Performed By: #### L IPID, TSH, CMP #### [facility] [address] [address] [address] Tam Caba Bilirubin [Mass/Vol] 0.5 mg/dL Normal 0.2-1.0 [facility] Comment on above: Performed By: #### L IPID, TSH, CMP #### [facility] [address] [place] [address] Dr. Tam Caba Calcium [Mass/Vol] 8.9 mg/dL Normal 8.5-10.1 [facility] Comment on above: Performed By: #### L IPID, TSH, CMP #### [facility] [address] [place] [address] Dr. Tam Caba Chloride [Moles/Vol] 108 mmol/L Critically high 98-107 [facility] Comment on above: Performed By: #### L IPID, TSH, CMP #### [facility] [address] [address] [address] Tam Caba CO2 [Moles/Vol] 27.3 mmol/L Normal 21.0-32.0 [facility] Comment on above: Performed By: #### L IPID, TSH, CMP #### [facility] [address] [place] [address] Dr. Tam Caba Creatinine [Mass/Vol] 0.99 mg/dL Normal 0.70-1.30 [facility] Comment on above: Performed By: #### L IPID, TSH, CMP #### [facility] [address] [address] [address] Tam Caba EGFR-AF JORDANIAN >60 Normal >=60 [facility] Comment on above: Performed By: #### L IPID, TSH, CMP #### [facility] [address] [address] [address] Tam Caba EGFR-NON AF JORDANIAN >60 Normal >=[address] [facility] Comment on above: Performed By: #### L IPID, TSH, CMP #### [facility] [address] [address] [address] Tam Caba Globulin (S) [Mass/Vol] 3.1 g/dL Normal [facility] Comment on above: Performed By: #### L IPID, TSH, CMP #### [facility] [address] [place] [address] Dr. Tam Caba Glucose [Mass/Vol] 92 mg/dL Normal 74-106 [facility] Comment on above: Performed By: #### L IPID, TSH, CMP #### [facility] [address] [place] [address] Dr. Tam Caba Potassium [Moles/Vol] 3.9 mmol/L Normal 3.5-5.[address] [facility] Comment on above: Performed By: #### L IPID, TSH, CMP #### [facility] [address] [place] [address] Dr. Tam Caba Protein [Mass/Vol] 6.8 g/dL Normal 6.4-8.2 [facility] Comment on above: Performed By: #### L IPID, TSH, CMP #### [facility] [address] [place] [address] Dr. Tam Caba Sodium [Moles/Vol] 144 mmol/L Normal 136-145 [facility] Comment on above: Performed By: #### L IPID, TSH, CMP #### [facility] [address] [place] [address] Dr. Tam Caba Urea nitrogen [Mass/Vol] 9.0 mg/dL Normal 7.0-18.[address] [facility] Comment on above: Performed By: #### L IPID, TSH, CMP #### [facility] [address] [address] [address] Tam Caba Urea nitrogen/Creatinine [Mass ratio] 9.1 mg/mg Normal [facility] Comment on above: Performed By: #### L IPID, TSH, CMP #### [facility] [address] [address] [address] Tam Caba TSHon 03-21-2023 TSH 1.479 uIU/mL Normal 0.358-3.740 [facility] Comment on above: Performed By: #### L IPID, TSH, CMP #### [facility] [address] [place] [address] Dr. Tam Caba UA RANDOM W/MICROSCOPICon BACTERIA NONE SEEN Normal NONE SEEN [facility] Comment on above: Performed By: #### U AMIC #### [facility] [address] [place] [address] Dr. Tam Caba Bilirubin Ql (U) Negative Normal NEGATIVE [facility] Comment on above: Performed By: #### U AMIC #### [facility] [address] [place] [address] Dr. Tam Caba CAST NONE SEEN Normal NONE SEEN [facility] Comment on above: Performed By: #### U AMIC #### [facility] [address] [place] [address] Dr. Tam Caba Clarity (U) CLEAR Normal CLEAR [facility] Comment on above: Performed By: #### U AMIC #### [facility] [address] [place] [address] Dr. Tam Caba Color (U) LT. YELLOW Normal YELLOW [facility] Comment on above: Performed By: #### U AMIC #### [facility] [address] [place] [address] Dr. Tam Caba Crystals LM Nom (Urine sed) NONE SEEN Normal NONE SEEN [facility] Comment on above: Performed By: #### U AMIC #### [facility] [address] [place] [address] Dr. Tam Caba Epithelial cells LM Ql (Urine sed) NONE SEEN Normal NONE SEEN /RARE [facility] Comment on above: Performed By: #### U AMIC #### [facility] [address] [address] [address] Tam Caba Glucose Ql (U) Negative Normal NEGATIVE [facility] Comment on above: Performed By: #### U AMIC #### [facility] [address] [address] [address] Tam Caba Hemoglobin Ql (U) Negative Normal NEGATIVE [facility] Comment on above: Performed By: #### U AMIC #### [facility] [address] [address] [address] Tam Caba Ketones Ql (U) Negative Normal NEGATIVE [facility] Comment on above: Performed By: #### U AMIC #### [facility] [address] [place] [address] Dr. Tam Caba LEUKOCYTES Negative Normal NEGATIVE [facility] Comment on above: Performed By: #### U AMIC #### [facility] [address] [address] [address] Tam Caba MUCOUS NONE SEEN Normal NONE SEEN [facility] Comment on above: Performed By: #### U AMIC #### [facility] [address] [address] [address] Tam Caba Nitrite Ql (U) Negative Normal NEGATIVE [facility] Comment on above: Performed By: #### U AMIC #### [facility] [address] [address] [address] Tam Caba pH (U) 7.5 [pH] Normal 5-9 [facility] Comment on above: Performed By: #### U AMIC #### [facility] [address] [address] [address] Tam Caba RBC 0-2 Normal 0-2 [facility] Comment on above: Performed By: #### U AMIC #### [facility] [address] [place] [address] Dr. Tam Caba SPEC GRAVITY 1.015 Normal 1.005-<=1.025 [facility] Comment on above: Performed By: #### U AMIC #### [facility] [address] [address] [address] Tam Caba UA PROTEIN Negative Normal NEGATIVE/ TRACE [facility] Comment on above: Performed By: #### U AMIC #### [facility] [address] [address] [address] Tam Caba Urobilinogen Qn (U) 0.2 {Stephanie'U}/dL Normal 0.2 - 1. [address] [facility] Comment on above: Performed By: #### U AMIC #### [facility] [address] [address] [address] Tam Caba WBC NONE SEEN Normal NONE SEEN [facility] Comment on above: Performed By: #### U AMIC #### [facility] [address] [address] [address] Tam Caba XR chest 2V*on 03-22-2022 XR chest 2V* [facility] [place] [address] [place] [address] XRay Report Signed Patient: Casa Anderson MR#: [id number] : 1975 Acct:[id number] Age/Sex: 46 / M ADM Date: 03/22/22 Loc: XD Room: Type: [facility] Attending Dr: Rea Soares MD Ordering Provider: Rea Soares MD Date of Service: 03/22/22 XR/XR chest 2V*: J84.10 Copies to: Rea Soares MD PA AND LATERAL CHEST: CLINICAL HISTORY: Follow-up after COVID pneumonia 6 months ago COMPARISON: 08/13/2021 The infiltrative changes seen on the prior have essentially resolved. There is developing consolidation, effusion or pneumothorax. The cardiac, hilar and mediastinal silhouettes are within normal limits. There is no vascular congestion. The visualized bony thorax is intact. End plate spurring is present at the spine. XR/XR chest 2V* IMPRESSION: NO ACUTE CARDIOPULMONARY ABNORMALITY. Impression dictated by: Lucie An M.D.03/22/2022 2:32 PM Dictation Location: RADIO-PC-13 Transcribed By: KOFI 03/22/22 1432 Dictated By: Lucie An MD 03/22/22 1430 Signed By: 03/22/22 1432 [facility] Complete Pulmonary Functiono n 09-28-2021 Complete Pulmonary Function [facility] [place] [id number] Pulmonary Function Signed Patient: Casa Anderson MR#: [id number] : 1975 Acct:[id number] Age/Sex: 46 / M ADM Date: 09/28/21 Loc: RT Room: Type: [facility] Attending Dr: Nasra MORENO Ordering Provider: NASRA LONDON Date of Service: 09/28/21 Accession #: Copies to: NASRA LONDON MD HISTORY: This is a 46-year-old, 72-inch tall, 250-pound male, reformed smoker, referred by JOSH Oliveira, for spirometry with the diagnosis of COVID. The patient had adequate and equal durations of exhalation with appropriate appearances for the flow volume loops with little change in expiratory flow after administration of bronchodilators. Spirometric data was acceptable and reproducible. RESULTS: Prebronchodilator FEV1 to forced vital capacity ratio is normal at 80% with a low normal forced vital capacity of 4.49 L or 82% predicted, and a low normal FEV1 of 3.58 L or 83% predicted with a normal PAW15-70% 3.36 L/sec or 87% predicted. After administration of bronchodilators, there is no significant change in forced vital capacity nor FEV1 with an insignificant 5% increase in the ZRW45-34%. Overall, these studies are essentially normal without evidence of obstruction. My suspicion for significant restriction is low. If there is concern for restriction or pulmonary vascular disease, may wish to consider full pulmonary function tests including measurement of static lung volumes and diffusion capacity. Clinical correlation is recommended. Transcribed By: RASHAWN 09/28/21 1440 Dictated By: Aram Shen MD 09/28/21 1239 Signed By: 09/29/21 0733 [facility] XR chest 2V*on 08-13-2021 XR chest 2V* [facility] [place] [address] [place] [id number] XRay Report Signed Patient: Casa Anderson MR#: [id number] : 1975 Acct:[id number] Age/Sex: 46 / M ADM Date: 08/13/21 Loc: XDCLY Room: Type: [facility] Attending Dr: Nasra MORENO Ordering Provider: NASRA LONDON Date of Service: 08/13/21 XR/XR chest 2V*: Postobstructive pneumonia Copies to: NASRA LONDON PA AND LATERAL CHEST: CLINICAL HISTORY: Shortness of breath. COVID + earlier this month. COMPARISON: 07/30/2021 There are continued bilateral infiltrative changes, similar to the comparison. There is no pleural effusion or pneumothorax. The cardiac, hilar and mediastinal silhouettes are within normal limits. There is no vascular congestion. The visualized bony thorax is intact. Endplate spurring is seen at the spine. XR/XR chest 2V* IMPRESSION: PERSISTENT INFILTRATES, SIMILAR TO THE COMPARISON. Impression dictated by: Lucie An M.D.08/13/2021 4:05 PM Dictation Location: [place] [address] Transcribed By: [facility] 08/13/21 1605 Dictated By: Lucie An MD 08/13/21 1604 Signed By: 08/13/21 1605 Normal [facility] SARS-CoV-2 (COVID-19) RNA NUPUR+probe Ql (Unsp spec) CLINICAL HISTORY: Shortness of breath. COVID + earlier this month. [facility] Other XR chest 2V* [facility] [employer] Other XR chest 2V* [facility] [employer] Other XR chest 2V* [address] [place] [address] [employer] Other XR chest 2V* [place] [address] [employer] Other XR chest 2V* XRay Report [facility] Other XR chest 2V* Signed [facility] Other XR chest 2V* Patient: Casa Anderson MR#: [id number] [facility] Other XR chest 2V* [id number] [facility] Other XR chest 2V* : 1975 Acct:[id number] [facility] Other XR chest 2V* Age/Sex: 46 / M ADM Date: 08/13/21 [facility] Other XR chest 2V* [facility] Other XR chest 2V* Attending Dr: [facility]ra [place] [facility] Other [facility]R [facility]* Ordering Provider: NASRA LONDON [facility] Other XR chest 2V* Date of Service: 08/13/21 [facility] Other XR chest 2V* XR/XR chest 2V*: Postobstructive pneumonia [facility] Other XR chest 2V* Copies to: NASRA LONDON [facility] Other XR [facility] 2V* PA AND LATERAL CHEST: [facility] [employer] Other XR chest 2V* COMPARISON: 07/30/2021 [facility] [employer] Other XR chest 2V* There are continued bilateral infiltrative changes, similar to the comparison. There is no pleural [facility] Other XR chest 2V* effusion or pneumothorax. The cardiac, hilar and mediastinal silhouettes are within normal limits. [facility] Other XR chest 2V* There is no vascular congestion. The visualized bony thorax is intact. Endplate spurring is [facility] Other XR chest 2V* seen at the spine. [employer] Other XR chest 2V* XR/XR chest 2V* [facility] Other XR chest 2V* IMPRESSION: [facility] Other XR chest 2V* PERSISTENT INFILTRATES, SIMILAR TO THE COMPARISON. [facility] Other XR chest 2V* Impression dictated by: Lucie An M.D.08/13/2021 4:[address] [facility] Other XR chest 2V* Dictation Location: [place] [address] [facility] Other XR chest 2V* Transcribed By: KOFI 08/13/[address] [facility] Other XR chest 2V* Dictated By: Lucie An MD 08/13/21 [facility] Other XR chest 2V* Signed By: [facility] Other XR chest 2V* 08/13/21 [facility] [employer] Other XR chest 2V*on 07-30-2021 XR chest 2V* [facility] [place] [address] [place] [address] XRay Report Signed Patient: Casa Anderson MR#: [id number] : 1975 Acct:[id number] Age/Sex: 46 / M ADM Date: 07/30/21 Loc: XDCLY Room: Type: [facility] Attending Dr: Nasra MORENO Ordering Provider: NASRA LONDON Date of Service: 07/30/21 XR/XR chest 2V*: SOB (shortness of breath) Copies to: [facility] XR chest 2V* 07/30/2021 3:05 PM SIGNS AND SYMPTOMS: Shortness of breath, cough, wheezing on exertion PROTOCOL: Frontal and lateral radiograph of the chest COMPARISON: None FINDINGS: The trachea is midline. The heart and mediastinal structures are within normal limits. There is interstitial prominence with patchy airspace opacities bilaterally. Atherosclerotic changes are present in the thoracic aorta. Degenerative changes are noted in the shoulders and thoracic spine. The bony thorax is intact. XR/XR chest 2V* IMPRESSION: Interstitial prominence and airspace opacities are noted bilaterally. This may represents bilateral pneumonia. Additional etiologies such as pulmonary fibrosis should also be considered. Impression dictated by: Joaquin Pabon M.D.07/30/2021 3:12 PM Dictation Location: [place] [address] Transcribed By: [facility] 07/30/21 1512 Dictated By: Joaquin Pabon II, MD 07/30/21 1509 Signed By: 07/30/21 1512 [facility] FINGER RIGHT MIN 2 VWSon FINGER RIGHT MIN 2 VWS [facility] Department of Radiology [address] [place] [id number] Patient Name: CASA ANDERSON : 1975 Sex: M Age: Race: White Pt. Location: [id number] Patient Status: O Ordered Date: 04/10/2020 1:40:00 PM Completed Date: 04/10/2020 02:48 PM Requesting Provider: GAMA MERCEDES Attending Provider: GAMA MERCEDES Report Copy To: GAMA MERCEDES Signs & Symptoms: Right index finger wound exploration with History: Right index finger wound exploration with Comments: Right index finger wound exploration with Exam: FINGER RIGHT MIN 2 VWS FINGER RIGHT MIN 2 VWS 04/10/2020 2:48 PM CLINICAL INDICATIONS: Right index finger wound exploration with TECHNOLOGIST COMMENTS: Intra op right index finger wound exploration and pinning with ,7 sec of fluoro used FINDINGS: Expiration and pinning of right index finger performed under fluoroscopic guidance. 7 seconds of fluoroscopic time used and 3 static images obtained. IMPRESSION: Dictation for documentation purposes only Approved by:Shena Goddard04/10/2020 3:32 PM. I, Flex Ortiz,have reviewed the images and reports Electronically signed: Flex Ortiz. Transcribed by: [email or web address], User Resident: FLEX MARCIAL Electronically Signed by: FLEX ORTIZ @ 04/10/2020 04:33 PM I personally read this/these film(s) with this resident Normal [facility] Comment on above: Order Comment: Right index finger wound exploration with Operative Reporton 0 Operative Report MR#: [id number] 2 [facility] Pt. Name: Casa Anderson Room #: [id number] Discharge Date: Birthdate: 1975 OPERATIVE REPORT DATE OF SURGERY: 04/10/2020 SURGEON: Gama Mercedes M.D. CAN LABELER: Elli Gamboa MD. PREPROCEDURE DIAGNOSIS: Right index finger dorsal laceration with extensor tendon injury. POSTPROCEDURE DIAGNOSIS: Right index finger dorsal laceration with extensor tendon injury. PROCEDURE PERFORMED: Right index finger irrigation and debridement, wound exploration with extensor tendon repair and complex wound closure and closed reduction and percutaneous pinning of the PIP joint. INDICATIONS FOR THE PROCEDURE: The patient is a 44-year-old male, who presented to our ER yesterday with a right index finger dorsal laceration from a fall injury. The patient was admitted, given IV antibiotics and was made n.p.o. at midnight and planned for surgery the next day due to the complexity of the injury and the injury to the extensor tendon. After being explained the risks, benefits, and alternatives, the patient was elected to proceed with the aforementioned procedure. PROCEDURE IN DETAIL: On the day of surgery, the patient was met in the preoperative holding area where the operative extremity and digit was identified and marked at that time. Consent was reviewed again with the patient at this time. The patient was then taken back to the operating theater, placed in the supine position with a right upper extremity placed on a hand table. A nonsterile tourniquet was applied to the right upper extremity. The extremity was then prepped and draped in sterile fashion. Time-out was performed. He had Ancef preoperatively and was given an additional dose preoperatively. We 1st began by performing a digital nerve block to the right index finger with 1:1 ratio of 0.5% bupivacaine and 2% lidocaine. We then injected a total of 11 mL that was distributed along the ulnar radial digital nerves of the right index finger. We then used an Esmarch and exsanguinated the limb and inflated the tourniquet to 250 mmHg. We then began by using our Littler scissors to open up and explore the wound. We then used our skin knife and propagated the wound to make a more proximal skin flap proximally. We extended this along the radial dorsal edge of the wound. Initially, his wound measured 2.5 x 3 cm. We then extended this about 3 cm proximally and we used Novafil stitch to elevate and secure our skin flaps. We then dissected and exposed our extensor tendon, it was found that over the proximal phalanx. There was about 80% transection of the extensor tendon on the radial side. There was more distally overlying the PIP joint. There was about a 6 mm longitudinal laceration of the extensor tendon. Once these injuries were identified, and the frayed edges of both the skin and the extensor tendon were debrided, we then copiously irrigated the wound with saline. We then placed a 4.5 K-wire in an ulnar to radial direction through the middle phalanx, crossing the PIP joint into the proximal phalanx, securing the PIP joint and extension. Once this was pinned, we utilized intraoperative fluoroscopy identify our pin position. We then used a 4-0 Ethibond stitch to repair the extensor tendon both at its transverse and longitudinal lacerations. Two horizontal stitches were placed more proximally through the transverse nature and 2 simple stitches were placed distally over the longitudinal laceration. The wound was then irrigated with saline and additional time and we began with our complex wound closure and skin coverage of the extensor tendon and dorsal surface of the finger. A small portion of the wound on the radial side was left somewhat open due to tissue loss and is going to be allowed to heal secondarily. We then trimmed our K-wire and placed a Jurgan ball and we then released the tourniquet. The patient was noted to have brisk cap refill at the conclusion of the case and we placed the patient into a radial gutter splint with intrinsic plus positioning of the fingers. The patient's anesthesia was then reversed and taken back to recovery room area in stable condition. BLOOD LOSS: Minimal. COMPLICATIONS: None. Dr. Mercedes was present for all portions of the procedure. IMPLANTS: Included one 4.5 K-wire with a Jurgan ball. The patient was discharged home postoperatively in stable condition. He will follow up with Dr. Mercedes in 2 weeks' time. He was discharged on vitamin D, Keflex, and Neopit. Electronically Signed by: Gama Mercedes M.D. 04/11/2020 07:30 P Gama Mercedes M.D. I was present for the pagan and critical portions and I was otherwise immediately available to assist. Date Dict: 04/10/2020/04:03 P/Elli Gamboa MD Date Trans: 04/10/2020 07:04 P/aniceto [id number] cc: Minh Bruno D.O. [facility] [place] [address] Normal [facility] POC GLUCOSE LABon 04-10-2020 Glucose [Mass/Vol] 88 mg/dL Normal 70-100 [facility] Comment on above: Performed By: #### 8 [id number] #### [facility] [address] *SARS-CoV-2 COVID-19on 04-09 [id number] Not Detected Normal Not Detected [facility] Comment on above: Order Comment: The A ptima SARS-CoV-2 assay is a nucleic acid amplification test intended for the qualitative detection of RNA from SARS-CoV-2 isolated and purified from nasopharyngeal (BELL NECK HAMMERER), nasal and oropharyngeal (OP) swab specimens from patients with signs and symptoms of infection who are suspected of COVID-19. Results are for the identification of SARS-CoV-2 RNA. The SARS-CoV-2 RNA is generally detectable in nasopharyngeal and oropharyngeal swabs during the acute phase of infection. The Aptima SARS-CoV-2 Assay on the [place] [employer] system is intended for use by laboratory personnel specifically instructed and trained in the operation of the [place] [employer] system. The Aptima SARS-CoV-2 assay is only for use under the Food and Drug Administration Emergency Use Authorization. Testing is limited to laboratories certified under the Clinical Laboratory Improvement Amendments of 1988 (CLIA), 42 U.S.C. ???263a, to perform high complexity tests. Not Detected: Not detected does not preclude SARS-CoV-2 infection and should not be used as the sole basis for patient management decisions. Not detected results must be combined with clinical observations, patient history, and epidemiological information. Performed By: #### 3 1792 #### [facility] [address] APTTon 04-09-2020 aPTT Coag (Bld) [Time] 29.9 s Normal 25.0-35.0 [facility] Comment on above: Order Comment: No: D o not add to previous draw Result Comment: ALL RESULTS MUST BE INTERPRETED WITH RESPECT TO BLOOD DRAWING ARTIFACT OR DILUTION ERROR OF ANTICOAGULANT AT THE TIME OF SAMPLING. THE APTT SHOULD NOT BE USED TO MONITOR UNFRACTIONATED HEPARIN THERAPY, THIS LABORATORY NO LONGER HAS AN ESTABLISHED THERAPEUTIC RANGE BASED ON THE APTT. IT IS RECOMMENDED THAT THE [facility] - HEPARIN ASSAY (ANTI-XA ACTIVITY) BE USED FOR THIS PURPOSE. Performed By: #### 5 7307, 05179 #### [facility] [address] BASIC METABOLIC PANELon 05-2 Calcium [Mass/Vol] 9.6 mg/dL Normal 8.6-10.3 [facility] Comment on above: Order Comment: No: D o not add to previous draw Performed By: #### 3 28, [id number] #### [facility] [address] [place] [address], [place] Chloride [Moles/Vol] 102 mmol/L Normal 98-107 [facility] Comment on above: Order Comment: No: D o not add to previous draw Performed By: #### 3 727, 79398 #### [facility] [address] [place] [address], [place] CO2 [Moles/Vol] 24 mmol/L Normal 21-31 [facility] Comment on above: Order Comment: No: D o not add to previous draw Performed By: #### 3 727, 94823 #### [facility] [address] [place] [address], [place] Creatinine [Mass/Vol] 1.11 mg/dL Normal 0.70-1.30 [facility] Comment on above: Order Comment: No: D o not add to previous draw Performed By: #### 3 28, 11106 #### [facility] [address] [place] [address], [place] GFR/1.73 sq M predicted among blacks MDRD (S/P/Bld) [Vol rate/Area] mL/min/{1.73_m2} Normal >60 [facility] Comment on above: Order Comment: No: D o not add to previous draw Performed By: #### 3 28, 63230 #### [facility] [address] [place] [address], [place] GFR/1.73 sq M predicted among non-blacks MDRD (S/P/Bld) [Vol rate/Area] mL/min/{1.73_m2} Normal >60 [facility] Comment on above: Order Comment: No: D o not add to previous draw Performed By: #### 3 28, 09921 #### [facility] [address] [place] [address], [place] Glucose [Mass/Vol] 84 mg/dL Normal 70-100 [facility] Comment on above: Order Comment: No: D o not add to previous draw Performed By: #### 3 727, 06472 #### [facility] [address] [place] [address], [place] Potassium [Moles/Vol] 3.6 mmol/L Normal 3.5-5.1 [facility] Comment on above: Order Comment: No: D o not add to previous draw Performed By: #### 3 727, 90621 #### [facility] [address] [place] [address], [place] Sodium [Moles/Vol] 135 mmol/L Low 136-145 [facility] Comment on above: Order Comment: No: D o not add to previous draw Performed By: #### 3 28, 56431 #### [facility] [address] [place] [id number], [facility] Urea nitrogen [Mass/Vol] 15 mg/dL Normal 7-25 [facility] Comment on above: Order Comment: No: D o not add to previous draw Performed By: #### 3 28, 95700 #### [facility] [address] [place] [id number], [facility] CBC COMPLETE BLOOD COUNTon 0 - Erythrocyte distribution width (RBC) [Ratio] 12.6 % Normal 11.5-15.0 [facility] Comment on above: Order Comment: No: D o not add to previous draw Performed By: #### 5 0608 #### [facility] [address] [place] [address], [place] Hematocrit (Bld) [Volume fraction] 46.8 % Normal 39.0-50.0 [facility] Comment on above: Order Comment: No: D o not add to previous draw Performed By: #### 5 0608 #### [facility] [address] [place] [address], [facility] Hemoglobin (Bld) [Mass/Vol] 16.3 g/dL Normal 13.0-17.0 [facility] Comment on above: Order Comment: No: D o not add to previous draw Performed By: #### 5 0608 #### [facility] [address] [place] [address], [facility] MCH (RBC) [Entitic mass] 31.7 pg Normal 27.0-33.0 [facility] Comment on above: Order Comment: No: D o not add to previous draw Performed By: #### 5 0608 #### [facility] [address] [place] [address], [facility] MCHC (RBC) [Mass/Vol] 34.8 g/dL Normal 32.0-35.0 [facility] Comment on above: Order Comment: No: D o not add to previous draw Performed By: #### 5 0608 #### [facility] [address] [place] [address], [facility] MCV (RBC) [Entitic vol] 91.1 fL Normal 82.0-98.0 [facility] Comment on above: Order Comment: No: D o not add to previous draw Performed By: #### 5 0608 #### [facility] [address] [place] [id number], [facility] Nucleated RBC/100 WBC (Bld) [Ratio] 0 % Normal 0-0 [facility] Comment on above: Order Comment: No: D o not add to previous draw Performed By: #### 5 0608 #### [facility] [address] [place] [address], [facility] PLAT CNT 296 10*3/uL Normal 150-400 [facility] Comment on above: Order Comment: No: D o not add to previous draw Performed By: #### 5 0608 #### [facility] [address] [facility] [place] [address], [facility] RBC (Bld) [#/Vol] 5.14 10*6/uL Normal 4.20-5.70 [facility] Comment on above: Order Comment: No: D o not add to previous draw Performed By: #### 5 0608 #### [facility] [address] [place] [address], [facility] WBC (Bld) [#/Vol] 7.97 10*3/uL Normal 4.00-10.60 [facility] Comment on above: Order Comment: No: D o not add to previous draw Performed By: #### 5 0608 #### [facility] [address] [place] [address], [facility] FINGER RIGHT MIN 2 VWSon FINGER RIGHT MIN 2 VWS [facility] Department of Radiology [address] [place] [phone] Patient Name: CASA ANDERSON : 1975 Sex: M Age: Race: White Pt. Location: [facility] Patient Status: E Ordered Date: 04/09/2020 6:55:00 PM Completed Date: 04/09/2020 07:05 PM Requesting Provider: HANNAH BERRY Attending Provider: VIDYA MENSAH Report Copy To: Signs & Symptoms: Pain ( specify Location) History: See Comments Comments: Evaluate for FX, right 2nd phalanx Exam: FINGER RIGHT MIN 2 VWS FINGER RIGHT MIN 2 VWS 04/09/2020 7:05 PM SIGNS AND SYMPTOMS: Pain ( specify Location) TECHNOLOGIST COMMENTS: Evaluate for FX, right 2nd phalanx, pt stated he had injury toward his 2 proximal digit. QUESTION FOR THE RADIOLOGIST: Evaluate for FX, right 2nd phalanx PROTOCOL: AP,Lateral and Oblique views were obtained. COMPARISON: None FINDINGS: There is a laceration at the base of the right index finger with artifact versus tiny radiopaque foreign body noted of the lateral aspect of the soft tissues adjacent to the proximal phalanx and associated soft tissue swelling. Focal lucency overlying the proximal phalanx of the index finger appears to be due to overlying soft tissue laceration or skin fold. IMPRESSION: 1. No acute bony abnormality. Laceration of the index finger with soft tissue swelling and possible tiny radiopaque foreign body or artifact as described. Approved by:Maxine Campos04/09/2020 7:18 PM. I, Michael Alamo,have reviewed the images and reports Electronically signed: Michael Alamo. Transcribed by: [email or web address], User Resident: MAXINE ARRIETA Electronically Signed by: MICHAEL ALAMO @ 04/09/2020 07:31 PM I personally read this/these film(s) with this resident Normal [facility] Comment on above: Order Comment: Evalu ate for FX, right 2nd phalanx PROTHROMBIN TIMEon 0 INR Coag (PPP) [Relative time] 1.03 {INR} Normal 0.91-1.16 [facility] Comment on above: Order Comment: No: D o not add to previous draw Result Comment: ACC P RECOMMENDED INR FOR WARFARIN THERAPY ------ ------- CONDITION INR PROPHYLAXIS OF VENOUS THROMBOSIS 2-3 (HIGH-RISK SURGERY) TREATMENT OF VENOUS THROMBOSIS 2-3 TREATMENT OF PULMONARY EMBOLISM 2-3 PREVENTION OF SYSTEMIC EMBOLISM: 2-3 ACUTE MYOCARDIAL INFARCTION TISSUE HEART VALVES VALVULAR HEART DISEASE ATRIAL FIBRILLATION RECURRENT SYSTEMIC EMBOLISM MECHANICAL HEART VALVE 2.5-3.5 FROM: ORAL ANTICOAGULANTS. MECHANISM OF ACTION, CLINICAL EFFECTIVENESS, AND OPTIMAL THERAPEUTIC RANGE. CHEST 1995;108:231S-246S. Performed By: #### 5 7307, 51725 #### [facility] [address] PT Coag (PPP) [Time] 13.5 s Normal 12.3-14.8 [facility] Comment on above: Order Comment: No: D o not add to previous draw Result Comment: ALL RESULTS MUST BE INTERPRETED WITH RESPECT TO BLOOD DRAWING ARTIFACT OR DILUTION ERROR OF ANTICOAGULANT AT THE TIME OF SAMPLING. Performed By: #### 5 7307, 64333 #### [facility] [address] [facility]. [address] TYPE AND SCREENon 04-09-2020 ABO INTERPRETATION O Normal [facility] Comment on above: Performed By: #### 6 2586 #### [facility] [address] [facility] [address] RH INTERPRETATION Negative Normal [facility] Comment on above: Performed By: #### 6 2586 #### [facility] [address] [facility] [address] VITAMIN D 25-HYDROXYon 04-09 VITAMIN D 25-OH 18.4 ng/mL Low 30.0-80.0 [facility] Comment on above: Result Comment: >80. 0 Toxicity possible Performed By: #### 3 0728, 406[address] #### [facility] [address] Vital Signs Date Time Vital Sign Value Performing Clinician Facility 12-25-2024 14:53-0500 Body mass index (BMI) [Ratio] 36.35 kg/m2 Kait Ana-Nossek CHEMIST PHARMACEUTICAL-CLINICAL STAFF RN Work Phone: [facility] 12-25-2024 14:53-0500 Body weight 121.56 kg Kait Ana-Nossek CHEMIST PHARMACEUTICAL-CLINICAL STAFF RN Work Phone: [facility] 12-25-2024 14:53-0500 Diastolic blood pressure 86 mm[Hg] Kait Ana-Nossek CHEMIST PHARMACEUTICAL-CLINICAL STAFF RN Work Phone: [facility] 12-25-2024 14:53-0500 Heart rate 84 /min Kait Ana-Nossek CHEMIST PHARMACEUTICAL-CLINICAL STAFF RN Work Phone: [facility] 12-25-2024 14:53-0500 Systolic blood pressure 140 mm[Hg] Kait Ana-Nossek CHEMIST PHARMACEUTICAL-CLINICAL STAFF RN Work Phone: [facility] 10-15-2024 16:24-0500 Body mass index (BMI) [Ratio] 35.8 kg/m2 Kait Ana-Nossek CHEMIST PHARMACEUTICAL-CLINICAL STAFF RN Work Phone: [facility] 10-15-2024 16:24-0500 Body weight 119.75 kg Kait Ana-Nossek CHEMIST PHARMACEUTICAL-CLINICAL STAFF RN Work Phone: [facility] 10-15-2024 16:24-0500 Diastolic blood pressure 82 mm[Hg] Kait Ana-Nossek CHEMIST PHARMACEUTICAL-CLINICAL STAFF RN Work Phone: [facility] 10-15-2024 16:24-0500 Heart rate 74 /min Kait Ana-Nossek CHEMIST PHARMACEUTICAL-CLINICAL STAFF RN Work Phone: [facility] 10-15-2024 16:24-0500 Systolic blood pressure 124 mm[Hg] Kait Ana-Nossek CHEMIST PHARMACEUTICAL-CLINICAL STAFF RN Work Phone: [facility] 09-10-2024 16:16-0400 Body mass index (BMI) [Ratio] 36.48 kg/m2 Kait Ana-Nossek CHEMIST PHARMACEUTICAL-CLINICAL STAFF RN Work Phone: [facility] 09-10-2024 16:16-0400 Body weight 122.02 kg Kait Ana-Nossek CHEMIST PHARMACEUTICAL-CLINICAL STAFF RN Work Phone: [facility] 09-10-2024 16:16-0400 Diastolic blood pressure 76 mm[Hg] Kait Ana-Nossek CHEMIST PHARMACEUTICAL-CLINICAL STAFF RN Work Phone: [facility] 09-10-2024 16:16-0400 Heart rate 66 /min Kait Ana-Nossek CHEMIST PHARMACEUTICAL-CLINICAL STAFF RN Work Phone: [facility] 09-10-2024 16:16-0400 Systolic blood pressure 126 mm[Hg] Kait Ana-Nossek CHEMIST PHARMACEUTICAL-CLINICAL STAFF RN Work Phone: [facility] 07-18-2024 15:58-0400 Body mass index (BMI) [Ratio] 34.45 kg/m2 Kait Ana-Nossek CHEMIST PHARMACEUTICAL-CLINICAL STAFF RN Work Phone: [facility] 07-18-2024 15:58-0400 Body weight 115.21 kg Kait Ana-Nossek CHEMIST PHARMACEUTICAL-CLINICAL STAFF RN Work Phone: [facility] 07-18-2024 15:58-0400 Diastolic blood pressure 82 mm[Hg] Kait Ana-Nossek CHEMIST PHARMACEUTICAL-CLINICAL STAFF RN Work Phone: [facility] 07-18-2024 15:58-0400 Heart rate 68 /min Kait Ana-Nossek CHEMIST PHARMACEUTICAL-CLINICAL STAFF RN Work Phone: [facility] 07-18-2024 15:58-0400 Systolic blood pressure 132 mm[Hg] Kait Ana-Nossek CHEMIST PHARMACEUTICAL-CLINICAL STAFF RN Work Phone: [facility] 07-08-2023 09:15-0400 Body height 182.88 cm Rula Woods Other [facility] Other 07-08-2023 09:15-0400 Body mass index (BMI) [Ratio] 36.4 kg/m2 Rula Kirkley Other [facility] Other 07-08-2023 09:15-0400 Body weight 121.75 kg Rula Peggy Other [facility] Other 07-08-2023 09:15-0400 Diastolic blood pressure 84 mm[Hg] Rula Peggy Other [facility] Other 07-08-2023 09:15-0400 Respiratory rate 18 /min Rula Peggy Other [facility] Other 07-08-2023 09:15-0400 SaO2% (BldA) [Mass fraction] 99 % Rula Kirkley Other [facility] Other 07-08-2023 09:15-0400 Systolic blood pressure 142 mm[Hg] Rulaangie Woods Other [facility] Other 10-07-2021 15:00-0500 Body height 182.88 cm Rea Salasnila Other [facility] Other 10-07-2021 15:00-0500 Body mass index (BMI) [Ratio] 36.34 kg/m2 Rea Salasnila Other [facility] Other 10-07-2021 15:00-0500 Body temperature 99 [degF] Rea Soares Other [facility] Other 10-07-2021 15:00-0500 Body weight 121.56 kg Lennytravon Soares Other [facility] Other 10-07-2021 15:00-0500 Diastolic blood pressure 84 mm[Hg] Rea Soares Other [facility] Other 10-07-2021 15:00-0500 Respiratory rate 20 /min Rea Soares Other [facility] Other 10-07-2021 15:00-0500 SaO2% (BldA) [Mass fraction] 97 % Rea Soares Other [facility] Other 10-07-2021 15:00-0500 Systolic blood pressure 138 mm[Hg] Rea Soares Other [facility] Other 08-13-2021 15:30-0400 Body height 182.88 cm Nasra Ian Other [facility] Other 08-13-2021 15:30-0400 Body mass index (BMI) [Ratio] 34.72 kg/m2 Nasra Ian Other [facility] Other 08-13-2021 15:30-0400 Body temperature 98.6 [degF] Nasra London Other [facility] Other 08-13-2021 15:30-0400 Body weight 116.12 kg Nasra Ian Other [facility] Other 08-13-2021 15:30-0400 Diastolic blood pressure 75 mm[Hg] Nasra London Other [facility] Other 08-13-2021 15:30-0400 Respiratory rate 18 /min Nasra London Other [facility] Other 08-13-2021 15:30-0400 SaO2% (BldA) [Mass fraction] 97 % Nasra London Other [facility] Other 08-13-2021 15:30-0400 Systolic blood pressure 112 mm[Hg] Nasra London Other [facility] Other Encounters Encounter Date Encounter Type Care Provider Facility Start: 01-03-2025 ambulatory MINH Galeana y:[facility] Start: 12-25-2024 End: 12-25-2024 Office outpatient visit 25 minutes Kait Latonya Ana-Nossek CHEMIST PHARMACEUTICAL-CLINICAL STAFF RN Work Phone: [facility] Comment on above: OFE (generalized anx iety disorder) (CMS/HCC); Bipolar affective disorder, currently depressed, moderate (CMS/HCC); Insomnia due to mental condition; ADD (attention deficit disorder) without hyperactivity Start: 12-25-2024 End: 12-25-2024 ambulatory KAIT Latonya ANA-NOSSEK Not Available Start: 12-25-2024 End: 12-25-2024 Bamboo flowsheet Kait Latonya Ana-Nossek CHEMIST PHARMACEUTICAL-CLINICAL STAFF RN Work Phone: [facility] Start: 12-25-2024 End: 12-25-2024 Bamboo flowsheet Kait Latonya Ana-Nossek CHEMIST PHARMACEUTICAL-CLINICAL STAFF RN Work Phone: [facility] Start: 10-15-2024 End: 10-15-2024 Office outpatient visit 25 minutes Kait M Ana-Nossek CHEMIST PHARMACEUTICAL-CLINICAL STAFF RN Work Phone: [facility] Comment on above: Anxiety Start: 10-15-2024 End: 10-15-2024 ambulatory KAIT Latonya ANA-NOSSEK Not Available Start: 10-15-2024 End: 10-15-2024 Bamboo flowsheet Kait M Ana-Nossek CHEMIST PHARMACEUTICAL-CLINICAL STAFF RN Work Phone: [facility] Start: 10-15-2024 End: 10-15-2024 Bamboo flowsheet Kait Hanks Ana-Nossek CHEMIST PHARMACEUTICAL-CLINICAL STAFF RN Work Phone: [facility] Start: 09-10-2024 End: 09-10-2024 Office outpatient visit 25 minutes Kait Hanks Ana-Nossek CHEMIST PHARMACEUTICAL-CLINICAL STAFF RN Work Phone: [facility] Comment on above: Bipolar 1 disorder, depressed, partial remission (CMS/HCC) (Primary Dx); Bipolar disorder, most recent episode manic (CMS/HCC); Insomnia due to mental condition; ADD (attention deficit disorder) without hyperactivity Start: 09-10-2024 End: 09-10-2024 ambulatory KAIT Hanks ANA-NOSSEK Not Available Start: 09-10-2024 End: 09-10-2024 Bamboo flowsheet Kait Hanks Ana-Nossek CHEMIST PHARMACEUTICAL-CLINICAL STAFF RN Work Phone: [facility] Start: 09-10-2024 End: 09-10-2024 Bamboo flowsheet Kait Hanks Ana-Nossek CHEMIST PHARMACEUTICAL-CLINICAL STAFF RN Work Phone: [facility] Start: 08-07-2024 End: 08-07-2024 ambulatory [facility] Facility:[facility] Start: 07-18-2024 End: 07-18-2024 Office outpatient visit 25 minutes Kait Hanks Ana-Nossek CHEMIST PHARMACEUTICAL-CLINICAL STAFF RN Work Phone: [facility] Comment on above: Bipolar 1 disorder, depressed, partial remission (CMS/HCC); Mixed obsessional thoughts and acts (CMS/HCC) Start: 07-18-2024 End: 07-18-2024 ambulatory KAIT Hanks ANA-NOSSEK Not Available Start: 07-18-2024 End: 07-18-2024 Bamboo flowsheet Kait Hanks Ana-Nossek CHEMIST PHARMACEUTICAL-CLINICAL STAFF RN Work Phone: [facility] Start: 07-18-2024 End: 07-18-2024 Bamboo flowsheet Kait Hanks Ana-Nossek CHEMIST PHARMACEUTICAL-CLINICAL STAFF RN Work Phone: [facility] Start: 06-14-2024 End: 06-14-2024 ambulatory KAIT Hanks ANA-NOSSEK Not Available Start: 06-12-2024 End: 06-12-2024 ambulatory DO MINH P HOUSE Facility:[facility] Cli siddhartha Start: 05-21-2024 End: 05-21-2024 ambulatory KAIT Hanks ANA-NOSSEK Not Available Start: 05-14-2024 End: 05-14-2024 ambulatory KAIT Hanks ANA-NOSSEK Not Available Start: 04-23-2024 End: 04-23-2024 ambulatory KAIT Latonya ANA-NOSSEK Not Available Start: 02-13-2024 End: 02-13-2024 ambulatory KAIT Latonya ANA-NOSSEK Not Available Start: 07-08-2023 End: 07-08-2023 ambulatory Rula Woods Other [facility] Other Start: 07-08-2023 Office outpatient vi sit 15 minutes Rula Woods [facility] [place] Start: 06-06-2023 End: 06-06-2023 ambulatory VLADIMIR WILLIS Facility:[facility] Start: 06-06-2023 End: 06-06-2023 Subsequent hospital visit by physician [facility] Work Phone: Radiology Comment on above: Biceps tendinitis on left [M75.22] Start: 06-06-2023 End: 06-06-2023 Subsequent hospital visit by physician [facility] Work Phone: Radiology Comment on above: Pain [R52] Start: 03-28-2023 Telephone encounter Vladimir mcmullen DO Work Phone: [place] Comment on above: Appointment Start: 03-21-2023 End: 03-22-2023 ambulatory YUN MANUEL Facility: Start: 10-07-2021 End: 10-07-2021 ambulatory Rea Soares Other [facility] [employer] Other Start: 10-07-2021 Office outpatient ne w 30 minutes Rea Soares [facility] Start: 10-07-2021 Telephone encounter Rea Soares [facility] Start: 08-13-2021 Office outpatient vi sit 15 minutes Nasra London [facility] [place] Start: 06-19-2020 End: 06-23-2020 Patient encounter procedure HARESH Hanks SAGE Facility:[facility] Start: 04-09-2020 End: 04-10-2020 Patient encounter procedure HARSHA BELLA Facility:[facility] Start: 10-02-2018 Patient encounter procedure MICHAEL RUIZ Facility:[id number] Start: 10-02-2018 Patient encounter procedure Facility:[id number] Procedures Date Procedure Procedure Detail Performing Clinician Start: 06-06-2023 Us lmtd joint/oth nonvasc xtr strux r-t w/img Vladimir Willis DO Work Phone: Start: 06-06-2023 Radex elbow complete minimum 3 views Vladimir Willis DO Work Phone: Start: 04-10-2020 ANESTH LOWER ARM SURGERY CHARLICarlos A GALLARDO Start: 04-10-2020 CMPLX RPR F/C/C/M/N/AX/G/H/F GAMA EBRAHEIM Start: 04-10-2020 PIN FINGER DISLOCATION GAMA EBRAHEIM Start: 04-10-2020 REPAIR FINGER TENDON NA FRANCISCA EBRAHEIM Start: 04-09-2020 Antibody screen HARSHA BELLA Comment on above: Performed By: #### [id number] #### [id number] [place] [address] Start: 04-18-2012 H/O: vasectomy Admission for reversal of vasectomy Vladimir Willis DO Work Phone: Plan of Treatment Date Care Activity Detail Author Start: 03-05-2025 End: 03-05-2025 Patient encounter procedure 03/05/2025 4:30 PM EDT Office Visit [facility] [address] [place] [id number] Kait Ying, CHEMIST PHARMACEUTICAL-CLINICAL STAFF RN [address] [place] [address] [facility] Start: 12-25-2024 End: 12-25-2024 Patient encounter procedure 12/25/2024 3:00 PM EST Office Visit [facility] [address] [place] [address] Kait Ying, CHEMIST PHARMACEUTICAL-CLINICAL STAFF RN [address] [place] [address] Arrived [facility] Comment on above: Arrived Start: 12-03-2024 End: 12-03-2024 Patient encounter procedure 12/03/2024 4:30 PM EST Office Visit [facility] [address] [place] [address] Kait Ying, CHEMIST PHARMACEUTICAL-CLINICAL STAFF RN [address] [place] [address] [facility] Start: 10-15-2024 End: 10-15-2024 Patient encounter procedure [facility] Comment on above: Arrived Start: 09-10-2024 End: 09-10-2024 Patient encounter procedure [facility] Comment on above: Arrived Start: 07-18-2024 End: 07-18-2024 Patient encounter procedure 07/18/2024 4:00 PM EDT Office Visit [facility] [address] [facility] [address] [place] [address] Kait Ying, CHEMIST PHARMACEUTICAL-CLINICAL STAFF RN [address] [facility] [address] [place] [address] Arrived [facility] Comment on above: Arrived Start: 07-15-2024 Influenza vaccination Influenza Vacc ine (#1) [facility] Start: 07-15-2023 Influenza vaccination [facility] Start: 11-14-2022 DEPRESSION ASSESSMENT DEPRESSION ASS [facility] Start: 2020 COLOGUARD (FIT-DNA) COLOGUARD (FIT-D NA) [facility] Start: 2020 Colonoscopy COLONOSCOPY [facility] Start: 2020 COLORECTAL CANCER SCREENING COLORECTAL CANCER SCREENING [facility] Start: [address] COLONOGRAPHY [facility] Start: 2020 DIABETES SCREEN DIABETES SCREEN [facility] Start: 2020 Diabetes Screening Diabetes Screenin g [facility] Start: 2020 FECAL OCCULT BLOOD FECAL OCCULT BLOO D [facility] Start: 2020 SIGMOIDOSCOPY SIGMOIDOSCOPY [facility] Start: 2010 Lipid 1996 panel - S michaela or Plasma Lipid Screening [facility] Start: 2010 LIPID SCREEN LIPID SCREEN [facility] Start: 07-26-2005 Urine microalbumin profile DTaP,Tdap,Td Vaccine (1 - Tdap) [facility] Start: 1994 Urine microalbumin profile DTAP,TDAP,TD (1 - Tdap) [facility] Start: 1993 HEPATITIS C SCREENING HEPATITIS C SC REENING [facility] Start: 1993 HIV SCREENING HIV SCREENING [facility] Start: 1975 COVID-19 VACCINE (#1) COVID-19 VACCI NE (#1) [facility] Start: 1975 HEPATITIS B (1 of 3 - 3-dose series) HEPATITIS B (1 of 3 - 3-dose series) [facility] Start: 1975 Screening for malign ant neoplasm of colon [facility] Immunizations Immunization Date Immunization Notes Care Provider Dorothy manzano 05-29-2016 Toradol per 15 mg Nasra London Other [facility] Other Payers Date Payer Category Payer Medicaid [id number] 2022 [facility] [id number] [facility] [id number] 2019 Unknown [id number]. [id number] 1975 Unknown [id number] 2.16.840.1.634860.3.579.2. 355 1975 Unknown [id number] 2.16.840.1.233157.3.579.2. 356 1975 Unknown [id number] 2.16.840.1.710317.3.579.2. 647 1975 Unknown [id number] 2.16.840.1.277471.3.579.2. 647 1975 Unknown [id number] 2.16.840.1.950290.3.579.2. 593 1975 Unknown [id number] 2.16.840.1.742135.3.579.2. 1259 1975 Unknown [id number] 2.16.840.1.167828.3.579.2. 1259 1975 Unknown [id number] 2.16.840.1.694591.3.579.2. 1259 1975 Unknown [id number] 2.16.840.1.789640.3.579.2. 9 1975 Unknown [id number] 2.16.840.1.432527.3.579.2. 9 1975 Unknown [id number] 2.16.840.1.261807.3.579.2. 1259 1975 Unknown [id number] 2.16.840.1.560419.3.579.2. 1259 1975 Unknown [id number] 2.16.840.1.119106.3.579.2. 1259 1975 Unknown [id number] 2.16.840.1.994140.3.579.2. 1259 1975 Unknown [id number] 2.16.840.1.250879.3.579.2. 8 1975 Unknown [id number] 2.16.840.1.305444.3.579.2. 718 1975 Unknown [id number] 2.16.840.1.110440.3.579.2. 718 1959 Unknown [id number] Unknown [id number] Social History Date Type Detail Facility Start: 07-01-2022 End: 12-25-2024 Sex Assigned At [facility] Other Start: 04-18-2012 Tobacco smoking stat [facility] Ex-smoker [facility] Work Phone: History of tobacco use Current smoker [facility] Work Phone: Start: 04-18-2012 End: 03-22-2023 Tobacco use and exposure Smokeless tobacco non-user [facility] Work Phone: Start: 07-01-2022 Alcohol intake Current drinke r of alcohol (finding) [facility] Start: 04-18-2012 Alcohol Comment Rarely [facility] Start: 1975 Sex Assigned At Not on file [facility] Start: 07-01-2022 End: 12-25-2024 History of Social function [facility] National Score (1-100), lower number is lower risk 74 [facility] Start: 03-22-2023 Tobacco smoking stat [facility] Never smoked tobacco [facility] Start: 07-18-2024 End: 12-25-2024 Alcoholic beverage intake Ex-drinker (finding) [facility] How often to you hav e a drink containing alcohol? Never [facility] Start: 05-24-2023 Alcohol Comment occasional francisco rgy drink or pop [facility] Clinical Notes 08-13-2021 to 10-15-2024 Kait Hanks Ana-Nikhilbelkis, CHEMIST PHARMACEUTICAL-CLINICAL STAFF RN - 10/15/2024 4:30 PM Summer Ying, CHEMIST PHARMACEUTICAL-CLINICAL STAFF RN - 12/25/2024 4:30 PM Summer Ying, CHEMIST PHARMACEUTICAL-CLINICAL STAFF RN - 09/10/2024 4:30 PM EDT Note Date & Type Note Facility 10-15-2024 History of Presen t illness Narrative Casa Anderson is a 49 y.o. male presents for Medication Management. HPI: Patient is here for medication follow up. Happy he transferred location. Patient has improved since last appt. Mood is reported as having depressive episodes in a slump or blah doesn't last more than a day. Anxiety is manageable. Sleeping better and helps shutting TV off. Medication compliant. No reported side effects. Denies abuse of substances. Denies Medical problems since last visit. Psychosocial stressors include job, daughter. SUBJECTIVE: PAST MEDICAL HISTORY: Past Medical History: Diagnosis Date ADHD (attention deficit hyperactivity disorder) (CMS/[facility]) Anxiety Bipolar disorder (CMS/[facility]) Chronic otitis externa of right ear H/O repair of right rotator cuff 2000 H/O vasectomy 2018 History of appendectomy 1994 History of cholecystectomy History of lateral meniscus repair of left knee Otalgia of right ear Right SNHL S/P anal fissurectomy 2000 ALLERGIES: Allergies Allergen Reactions Prednisone Other Reaction(s): makes me mean SURGICAL HISTORY: No past surgical history on file. FAMILY HISTORY: Family History Problem Relation Name Age of Onset Diabetes Mother Hypertension Mother Heart disease Mother Stroke Father Heart disease Father Mental illness Father Hypertension Father Depression Sister Diabetes Sister Cancer Sister Other (htn) Sister Mental illness Mother's Brother Other (suicide) Mother's Brother SOCIAL HISTORY: Social History Tobacco Use Smoking status: Never Smokeless tobacco: Never Vaping Use Vaping status: Never Used Substance Use Topics Alcohol use: Not Currently Comment: occasional energy drink or pop Drug use: Not Currently Types: Marijuana Depression: Not at risk (09/10/2024) PHQ-2 PHQ-2 Score: 0 REVIEW OF SYMPTOMS - MENTAL STATUS EXAM Appearance Appearance: Casual dress, normal grooming and hygiene Attitude Attitude: Cooperative, conversant, engaged, and with good eye contact. Behavior Cooperative, conversant, engaged, and with good eye contact. Speech Normal, clear, regular rate, rhythm and volume Affect full affect appropriate with mood Mood euthymic Thought Process Organized and Clear Thought Content No Suicidal Ideation and No Homicidal ideation Perception No perceptual abnormalities noted Orientation Appropriate to age, Person, Place, and Time Memory/Concentration Short term intact and terminal superintendent intact Insight/Judgement Good OBJECTIVE: Visit Vitals Smoking Status Never No results found for: TSH No results found for: GLU , CALCIUM , NA , K , CO2 , CL , BUN , CREATININE No results found for: WBC , HGB , HCT , MCV , PLT No results found for: CHOL No results found for: HDL No results found for: LDLCALC No results found for: TRIG ASSESSMENT AND PLAN: Assessment/Plan Bipolar 1 disorder, depressed, lamoTRIgine (LaMICtal) 200 MG tablet; Take 1.5 tablets (300 mg) by mouth Daily lurasidone (Latuda) 80 MG tablet; Take 1 tablet (80 mg) by mouth in the morning. Take with meals. Anxiety sertraline (Zoloft) 50 MG tablet; Take 1 tablet (50 mg) by mouth Daily Insomnia - has not needed sanata Instructed to call office if worsening of sx Patient was seen Face to Face, Reviewed chart documents and documentation, Visit time : 30min Follow up 6 weeks documented in this encounter [facility] 10-14-2024 History of Presen t illness Narrative Images from the original note were not included. Casa Anderson is a 49 y.o. male presents for Medication Management. HPI: Patient is here for medication follow up. Got laid off in Oct. Patient mood has been a little down. Due to not working. Feels useless. Mood is reported as not depressed. Anxiety is under control. Sleeping Medication compliant. No reported side effects. Denies abuse of substances. Medical problems since last visit. will be graduating. Psychosocial stressors include no pay check for past 5 weeks. SUBJECTIVE: PAST MEDICAL HISTORY: Past Medical History: Diagnosis Date ADHD (attention deficit hyperactivity disorder) ([facility]/HCC) Anxiety Bipolar disorder (CMS/HCC) Chronic otitis externa of right ear H/O repair of right rotator cuff 2001 H/O vasectomy 2018 History of appendectomy 1994 History of cholecystectomy History of lateral meniscus repair of left knee Otalgia of right ear Right SNHL S/P anal fissurectomy 2000 ALLERGIES: Allergies Allergen Reactions Prednisone Other Reaction(s): makes me mean SURGICAL HISTORY: No past surgical history on file. FAMILY HISTORY: Family History Problem Relation Name Age of Onset Diabetes Mother Hypertension Mother Heart disease Mother Stroke Father Heart disease Father Mental illness Father Hypertension Father Depression Sister Diabetes Sister Cancer Sister Other (htn) Sister Mental illness Mother's Brother Other (suicide) Mother's Brother SOCIAL HISTORY: Social History Tobacco Use Smoking status: Never Smokeless tobacco: Never Vaping Use Vaping status: Never Used Substance Use Topics Alcohol use: Not Currently Comment: occasional energy drink or pop Drug use: Not Currently Types: Marijuana Depression: Not at risk (10/15/2024) PHQ-2 PHQ-2 Score: 0 REVIEW OF SYMPTOMS - MENTAL STATUS EXAM Appearance Appearance: Normal grooming and hygiene. Appears stated age. Dressed appropriately for weather. Behavior Calm, cooperative, pleasant. Good posture.. No abnormal movements. Speech Normal, clear, regular rate, rhythm and volume Affect Full range. Stable. Appropriate and congruent with mood. Mood sad Thought Process Organized, logical, and goal directed Thought Content Denies suicidal and homicidal ideation Perception Denies auditory and visual hallucinations. No evidence of delusions. Orientation Appropriate to age, Person, Place, and Time Memory/Concentration Immediate, recent and remote memory intact Insight/Judgement Good. Able to make reasonable life decisions. OBJECTIVE: Visit Vitals Smoking Status Never No results found for: TSH No results found for: GLU , CALCIUM , NA , K , CO2 , CL , BUN , CREATININE No results found for: WBC , HGB , HCT , MCV , PLT No results found for: CHOL No results found for: HDL No results found for: LDLCALC No results found for: TRIG ASSESSMENT AND PLAN: Assessment/Plan Bipolar 1 disorder, depressed, lamoTRIgine (LaMICtal) 200 MG tablet; Take 1.5 tablets (300 mg) by mouth Daily lurasidone (Latuda) 80 MG tablet; Take 1 tablet (80 mg) by mouth in the morning. Take with meals. Anxiety sertraline 100mg daily Insomnia Instructed to call office if worsening of sx Patient was seen Face to Face, Reviewed chart documents and documentation, Visit time : 30min Follow up 2 months documented in this encounter [facility] 09-10-2024 History of Presen t illness Narrative Images from the original note were not included. Casa Anderson is a 49 y.o. male presents for Medication Management. HPI: Patient is here for medication follow up. present. Patient has is stable but is having anxiety. Mood is reported as depressed and rates 7(10worst). Has had thoughts of that enter into his head about not being around. States wouldn't act on it. Anxiety is 9 (10worst). Feels anxious when goes to work. States helps to call . Sleeping 5-6 hours. Chronic problem would like to try something else for sleep. Has tried lunesta, trazodone, melatonin, seroquel without effect. Medication compliant. No reported side effects. Denies abuse of substances. Medical problems since last visit. Asked to cut down on energy drinks. Psychosocial stressors include worrying about everything. SUBJECTIVE: PAST MEDICAL HISTORY: Past Medical History: Diagnosis Date ADHD (attention deficit hyperactivity disorder) ([facility]) Anxiety Bipolar disorder ([facility]) Chronic otitis externa of right ear H/O repair of right rotator cuff 2000 H/O vasectomy 2018 History of appendectomy 1994 History of cholecystectomy History of lateral meniscus repair of left knee Otalgia of right ear Right SNHL S/P anal fissurectomy 2000 ALLERGIES: Allergies Allergen Reactions Prednisone Other Reaction(s): makes me mean SURGICAL HISTORY: No past surgical history on file. FAMILY HISTORY: Family History Problem Relation Name Age of Onset Diabetes Mother Hypertension Mother Heart disease Mother Stroke Father Heart disease Father Mental illness Father Hypertension Father Depression Sister Diabetes Sister Cancer Sister Other (htn) Sister Mental illness Mother's Brother Other (suicide) Mother's Brother SOCIAL HISTORY: Social History Tobacco Use Smoking status: Never Smokeless tobacco: Never Vaping Use Vaping status: Never Used Substance Use Topics Alcohol use: Not Currently Comment: occasional energy drink or pop Drug use: Not Currently Types: Marijuana Depression: Not at risk (09/10/2024) PHQ-2 PHQ-2 Score: 0 REVIEW OF SYMPTOMS - MENTAL STATUS EXAM Appearance Appearance: Casual dress, normal grooming and hygiene Attitude Attitude: Cooperative, conversant, engaged, and with good eye contact. Behavior Cooperative, conversant, engaged, and with good eye contact. Speech Normal, clear, regular rate, rhythm and volume Affect sad Mood Depressed and Anxious Thought Process Organized and Clear Thought Content No Suicidal Ideation and No Homicidal ideation Perception No perceptual abnormalities noted Orientation Appropriate to age, Person, Place, and Time Memory/Concentration Short term intact and fdc intact Insight/Judgement -fair OBJECTIVE: Visit Vitals BP 126/76 (BP Location: Right arm, Patient Position: Sitting) Pulse 66 Wt 269 lb BMI 36.48 kg/m Smoking Status Never BSA 2.49 m No results found for: TSH No results found for: GLU , CALCIUM , NA , K , CO2 , CL , BUN , CREATININE No results found for: WBC , HGB , HCT , MCV , PLT No results found for: CHOL No results found for: HDL No results found for: LDLCALC No results found for: TRIG ASSESSMENT AND PLAN: Assessment/Plan Assess/Plan Smart[employer]: Bipolar 1 disorder, depressed, lamoTRIgine (LaMICtal) 200 MG tablet; Take 1.5 tablets (300 mg) by mouth Daily lurasidone (Latuda) 80 MG tablet; Take 1 tablet (80 mg) by mouth in the morning. Take with meals. Anxiety Increase sertraline (Zoloft) 50 MG tablet; Take 1 tablet (50 mg) by mouth Daily Insomnia Start Sonata 10mg po every day prn Instructed to call office if worsening of sx Patient was seen Face to Face, with wifeReviewed chart documents and documentation, Visit time : 30min 5 weeks documented in this encounter [facility] 07-18-2024 History of Presen t illness Narrative Images from the original note were not included. Casa Anderson is a 49 y.o. male presents for Medication Management. HPI: Patient is here for medication follow up. Patient has improved since last appt. Mood is not depressed. Anxiety is intermittent. I feel really good. Didn't have anxiety when went out of town. Sleeping 5 hours. Trouble staying asleep. Denies mind racing. Had an episode of working 16 hours for 9 days. When he wakes up and doesn't feel tired. 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 Medication compliant. No reported side effects. Denies abuse of substances. No Medical problems since last visit. Psychosocial stressors include worries about putting money away for winter. SUBJECTIVE: PAST MEDICAL HISTORY: Past Medical History: Diagnosis Date ADHD (attention deficit hyperactivity disorder) ([facility]) Anxiety Bipolar disorder ([facility]) Chronic otitis externa of right ear H/O repair of right rotator cuff 2000 H/O vasectomy 2018 History of appendectomy 1994 History of cholecystectomy History of lateral meniscus repair of left knee Otalgia of right ear Right SNHL S/P anal fissurectomy 2000 ALLERGIES: Allergies Allergen Reactions Prednisone Other Reaction(s): makes me mean SURGICAL HISTORY: No past surgical history on file. FAMILY HISTORY: Family History Problem Relation Name Age of Onset Diabetes Mother Hypertension Mother Heart disease Mother Stroke Father Heart disease Father Mental illness Father Hypertension Father Depression Sister Diabetes Sister Cancer Sister Other (htn) Sister Mental illness Mother's Brother Other (suicide) Mother's Brother SOCIAL HISTORY: Social History Tobacco Use Smoking status: Never Smokeless tobacco: Never Vaping Use Vaping status: Never Used Substance Use Topics Alcohol use: Not Currently Comment: occasional energy drink or pop Drug use: Not Currently Types: Marijuana Depression: Not at risk (06/14/2024) PHQ-2 PHQ-2 Score: 0 REVIEW OF SYMPTOMS - MENTAL STATUS EXAM Appearance Appearance: Casual dress, normal grooming and hygiene Attitude Attitude: Cooperative, conversant, engaged, and with good eye contact. Behavior Cooperative, conversant, engaged, and with good eye contact. Speech Normal, clear, regular rate, rhythm and volume Affect full affect appropriate with mood Mood euthymic Thought Process Organized and Clear Thought Content No Suicidal Ideation and No Homicidal ideation Perception No perceptual abnormalities noted Orientation Appropriate to age, Person, Place, and Time Memory/Concentration Short term intact and fdc intact Insight/Judgement Fair OBJECTIVE: Visit Vitals Smoking Status Never No results found for: TSH No results found for: GLU , CALCIUM , NA , K , CO2 , CL , BUN , CREATININE No results found for: WBC , HGB , HCT , MCV , PLT No results found for: CHOL No results found for: HDL No results found for: LDLCALC No results found for: TRIG ASSESSMENT AND PLAN: Assessment/Plan Assess/Plan SmartLinks: Diagnoses and all orders for this visit: Bipolar 1 disorder, depressed, partial remission (CMS/HCC) - lamoTRIgine (LaMICtal) 200 MG tablet; Take 1.5 tablets (300 mg) by mouth Daily - lurasidone (Latuda) 80 MG tablet; Take 1 tablet (80 mg) by mouth in the morning. Take with meals. Mixed obsessional thoughts and acts (CMS/HCC) - sertraline (Zoloft) 50 MG tablet; Take 1 tablet (50 mg) by mouth Daily Patient was seen Face to Face, Reviewed chart documents and documentation, Visit time : 32min F/U 2months documented in this encounter [facility] 07-08-2023 Evaluation note Encounter Date Diagnosis Assessment Notes Jun, Contact dermatitis, unspecified contact dermatitis type, unspecified trigger (ICD-10 - L25.9) Discussed with patient rash is consistent with contact dermatitis. Discussed typical duration of contact dermatitis 1 to 3 weeks. Advised steroid will help with inflammation and itching but rash will take time to completely resolve. We will treat with kenalog IM. May continue topical calamine or similar. Avoid scratching or picking at areas to avoid secondary infection. Keep areas clean with soap and water. Follow-up with family doctor if not gradually improving over the next 10 days, sooner if significantly worsening or changing appearance. Patient verbalized understanding of treatment plan. [facility] Other 07-24-2023 NoteHNO ID: [id number] Author: Vladimir Willis, DO Service: ? Author Type: Physician Type: Progress Notes Filed: 06/06/2023 9:50 AM Note Text: [facility] Office Visit Documentation Note [facility] Sports Medicine Orthopaedic and Rheumatologic [place] HISTORY OF PRESENT ILLNESS (HPI) CHIEF COMPLAINT / REASON FOR VISIT SERVICE DATE: June 06, 2023 PCP: Lydia Anderson is here today at request of Lydia Manuel CNP specifically for consultation of my opinion in regards to the chief complaint listed below. Correspondence will be shared today via the [facility] electronic health record or through regular mail, where applicable. 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 He describes the pain as Sharp, Throbbing. The pain is Intermittent, and has lasted for 11 Months. Interventions tried include Medication. Charan. He is currently taking ibuprofen. Most recent elbow imaging was completed on 06/06/2023 (XR ELBOW SPECIAL VIEWS AP/LAT/OTHER LEFT) . PREVIOUS TREATMENTS: Treatments so far have included no medications, physical therapy, injections, bracing, advanced imaging or surgical evaluation. REVIEW OF SYSTEMS ROS: Neurologic: Any numbness or tingling? No Endocrine: Any diagnosis of diabetes? No ALLERGIES ALLERGIES Allergen Reactions Prednisolone Mental Status Change PAST MEDICAL HISTORY PAST MEDICAL HISTORY Diagnosis Date Generalized anxiety disorder Anxiety, Generalized PHYSICAL EXAMINATION Body Habitus: well nourished and no acute distress Psych: normal Sensation: sensation to light touch is grossly normal bilaterally Skin: Color, texture, turgor normal. No rashes or lesions Swelling: no swelling noted Gait: Normal, the patient did not have trouble getting onto the exam table. ORTHO EXAM: Ortho Exam Elbow extension to 7-10 degree loss Pain anterior bicep/distal Hook negative but painful No proximal bicep pain No posterior tricep pain or weakness. Medial and lateral elbow stable IMAGING/LABORATORY IMAGING: Final results and radiologist's interpretation, available in the [facility] health record. Images were reviewed with the patient/family members in the office today. My personal interpretation of the performed imaging is chronic degenerative changes. Last XR Elbow - Impression Only XR ELBOW SPECIAL VIEWS AP/LAT/OTHER LEFT Exam End: 06/06/2023 8:51 AM (Final result) Impression: IMPRESSION: No fracture or malalignment. Joint spaces are maintained. There are enthesophytes at the common flexor tendon origin and triceps insertion. Manager Software Development: OLINDA ... Last US Elbow - Impression Only US ELBOW RT Collected: 03/01/2016 10:13 AM (Final result) Impression: IMPRESSION: Bilateral distal biceps tendinosis as described. No high-grade tearing. Manager Software Development: LAUREN Transcribe Date/Time: Mar 01 2016 10:19A ... 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 MSK US anterior bicep - warranted at this time. Successful RIGHT elbow PRP in past Follow up: [place] For [employer] prior to visit: No additional imaging warranted. Written instructions (see patient instructions) and verbal health education given to patient. Patient verbalizes understanding and agrees with the treatment plan. Vladimir Willis D.O. [facility] Orthopaedic and Rheumatologic Dental Office Manager, [facility] [employer] Program Team Physician, [facility] [employer] Consulting Physician, [place] [employer] Special Education Teacher [phone]23 NoteHNO ID: [id number] Author: Ofelia Barfield RT(R) Service: Radiology Author Type: Technologist Type: Progress Notes Filed: 06/06/2023 8:49 AM Note Text: Radiology Service Progress Note PATIENT NAME: Casa Anderson DATE OF SERVICE: June 06, 2023 TIME: 8:48 AM PATIENT IDENTITY VERIFICATION COMPLETED USING TWO (2) IDENTIFIERS: Name and Date of confirmed by patient verbally. FALL SCREENING: Has the patient had 2 falls in the last year or 1 fall with injury or currently using an Ambulatory Assistive Device (Walker, Cane, Wheelchair, Crutches, etc.)? No PATIENT GENDER DATA: Male PATIENT RELEVANT IMPLANT DATA REVIEWED: Not Applicable RADIOLOGY DEPARTMENT: General X-ray: Exam(s) Completed: Upper Extremity X-Ray(s): Elbow, left PERIPHERAL IV DATA: Not applicable SIGNED BY: RT Jessica(R) June 06, 2023 8:48 [facility]07-24-2023 History of Present illness Narrative* Ofelia Barfield RT(R) - 06/06/2023 9:15 AM EDT Radiology Service Progress Note PATIENT NAME: Casa Anderson DATE OF SERVICE: June 06, 2023 TIME: 8:48 AM PATIENT IDENTITY VERIFICATION COMPLETED USING TWO (2) IDENTIFIERS: Name and Date of confirmedby patient verbally. FALL SCREENING: Has the patient had 2 falls in the last year or 1 fall with injury or currently using an Ambulatory Assistive Device (Walker, Cane, Wheelchair, Crutches, etc.)? No PATIENT GENDER DATA: Male PATIENT RELEVANT IMPLANT DATA REVIEWED: Not Applicable RADIOLOGY DEPARTMENT: General X-ray: Exam(s) Completed: Upper Extremity X- Ray(s): Elbow, left PERIPHERAL IV DATA: Not applicable SIGNED BY: RT Jessica(R) June 06, 2023 8:48 AM documented [facility] Miscellaneous Notes* Telephone Encounter - Elías hSearer RN - 04/13/2023 11:25 AM EDT No answer upon call. MC message left. Consult on file. Appointment can be made by calling [phone] Elías Shearer RN, BSN * Telephone Encounter - Sue Fleming - 03/28/2023 1:17 PM EDT Casa Anderson is calling Vladimir Willis DO today with concern regarding a referral that was faxed on 03/21 from Lydia Deng at [facility]. Wants to confirm it was received. Please call [phone] to confirm. No chief complaint on file. Patient has been identified by name and birthdate. 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 diagnosed with COViD pneumonia in ER [facility] Other Evaluation noteNo [facility]Special [facility] [employer] Other Evaluation note* Diagnosis Pain Generalized pain [facility] this [facility] Diagnosis Biceps tendinitis on left Chronic pain of left elbow documented [facility] this [facility]* Diagnosis Bipolar 1 disorder, depressed, partial remission ([facility]/HCC)- Primary Bipolar disorder, most recent episode manic (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 Attention deficit disorder without mention of hyperactivity [facility] Diagnosis Anxiety Anxiety state, unspecified [facility]* Diagnosis Bipolar 1 disorder, depressed, partial remission (CMS/HCC) Mixed obsessional thoughts and acts (CMS/HCC) [facility]* Diagnosis OFE (generalized anxiety disorder) (CMS/HCC) Generalized anxiety disorder Bipolar affective disorder, currently depressed, moderate (CMS/HCC) Bipolar I disorder, most recent episode (or current) depressed, moderate 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 Attention deficit disorder without mention of hyperactivity documented [facility] this encounter [facility] Narrative - Reported* Type Description Date Medical History Anxiety and depression Medical History bipolar Medical History cold sores Surgical History knee arthroscopy 2014 Surgical History rotator cuff tear repair Surgical History cholecystectomy Surgical History appendectomy Surgical History vasectomy reversal Hospitalization History see above surgical [employer] Other History general Narrative - Reported* Type Description Date Medical History Anxiety and depression Medical History bipolar Medical History cold sores Medical History COVID-19 Surgical History knee arthroscopy 2014 Surgical History rotator cuff tear repair Surgical History cholecystectomy Surgical History appendectomy Surgical History vasectomy reversal Hospitalization History see above surgical [employer] Other Reason for referral (narrative)* Reason post covid pneu monia Diagnosis 1 COVID-19 (U07.1) Diagnosis 2 Pneumonia due to Cor onavirus disease 2018 (J12.82) Referral Organization [facility] Family Medicin e [place] Referring Provider First Name Nasra Referring Provider Last Name Ian Referring Provider Specialty Nurse Pract itioner Referred Organization [facility] Pulmonary Dise ase Referred Provider Rea Soares Referred Address [address] [place] [id number] Referred Provider Specialty Pulmonary Di seases Referral Priority Routine General Notes Fore, Shanti M 021 10:33:44 AM >Received today and sent P2P [facility] Other Reason for referral (narrative)* Diagnostic Procedure Only (Routine) - Closed Specialty Diagnoses / Procedures Referred By Sinan diaz Referred To Contact XR IMAGING Diagnoses Pain Procedures XR ELBOW SPECIAL VIEWS AP/LAT/OTHER LEFT RADEX ELBOW COMPLETE MINIMUM [address] [place] [address] [place] [address] [place] [address] Referral ID Status Reason Start Date Expiration Date V isits Requested Visits Authorized [id number] Closed Auto-Generate d Referral 04/14/2023 05/13/2024 [address] [facility] for referral (narrative)* Diagnostic Procedure Only (Routine) - Closed Specialty Diagnoses / Procedures Referred By Sinan diaz Referred To Contact US IMAGING Diagnoses Biceps tendinitis on left Chronic pain of left elbow Procedures US ELBOW LEFT US LMTD JOINT/OTH NONVASC XTR STRUX R-T W/[place] [address] [place] [address] [place] [address] Referral ID Status Reason Start Date Expiration Date V isits Requested Visits Authorized [id number] Closed Auto-Generate d Referral 06/06/2023 07/05/2024 [address] [facility] for visit Narrative* Diagnostic Procedure Only (Routine) - Closed Specialty Diagnoses / Procedures Referred By Sinan diaz Referred To Contact US IMAGING Diagnoses Biceps tendinitis on left Chronic pain of left elbow Procedures US ELBOW LEFT US LMTD JOINT/OTH NONVASC XTR STRUX R-T W/[place] [address] [place] [address] [place] [address] Referral ID Status Reason Start Date Expiration Date V isits Requested Visits Authorized [id number] Closed Auto-Generate d Referral 06/06/2023 07/05/2024 1 1 [facility] Summary Purpose Family History No Family History Records FoundNo Family History Records FoundNo Family History Records FoundNo Family History Records FoundNo Family History Records FoundNo Family History Records FoundNo Family History Records FoundNo Family History Records Found Advance Directives No Advanced Directives Records FoundNo Advanced Directives Records FoundNo Advanced Directives Records FoundNo Advanced Directives Records FoundNo Advanced Directives Records FoundNo Advanced Directives Records FoundNo Advanced Directives Records FoundNo Advanced Directives Records Found Hospital Course Note MR#: [id number] [facility] Pt. Name: Casa Anderson Admitted: 04/09/2020 Discharged: 04/10/2020 Date of : 1975 Physician: Gama Mercedes M.D. DISCHARGE SUMMARY HOSPITAL COURSE: The patient is a 44-year-old male, who was admitted from the ER with a right index finger dorsal laceration due to a saw injury. He was admitted for IV antibiotics and plans for surgery the following day. He subsequently underwent right index finger wound exploration, I and D, extensor tendon repair, and closed reduction and percutaneous pinning of the PIP joint on hospital day 1, and he was subsequently discharged home postoperatively in stable condition. All questions were answered prior to discharge. He will keep his splint on clean, dry, and intact until clinical followup in [address] Mercedes. He was given prescriptions for vitamin D, Neopit, and Keflex at discharge. Electronically Signed by: Gama Mercedes M.D. 04/11/2020 07:30 P (more content not included)... Additional Source Comments (unrecognized sect ion and content) No Status Records FoundNo Status Records FoundNo Status Records FoundNo Status Records FoundNo Status Records FoundNo Status Records FoundNo Status Records FoundNo Status Records Found INFORMATION SOURCE (unrecogn ized section and content) DATE CREATED AUTHOR 10/23/2018 [facility] DATE CREATED AUTHOR AUTHOR'S ORGANIZ ATION 10/23/2018 [facility] DATE CREATED AUTHOR AUTHOR'S ORGANIZ ATION 06/22/2020 [facility] DATE CREATED AUTHOR AUTHOR'S ORGANIZ ATION 07/07/2022 [facility] DATE CREATED AUTHOR AUTHOR'S ORGANIZ ATION 03/24/2023 [facility] DATE CREATED AUTHOR AUTHOR'S ORGANIZ ATION 06/06/2023 [facility] DATE CREATED AUTHOR AUTHOR'S ORGANIZ ATION 12/27/2024 [facility] DATE CREATED AUTHOR AUTHOR'S ORGANIZ ATION 01/05/2025 [facility] REASON FOR VISIT (unrecogniz ed section and content) Reason Comments Appointment Reason Comments Radio Gen RMP Specialty Diagnoses / Procedures Referred By Contac t Referred To Contact XR IMAGING Diagnoses Pain Procedures XR ELBOW SPECIAL VIEWS AP/LAT/OTHER LEFT RADEX ELBOW COMPLETE MINIMUM [address] [place] [address] [place] [address] [place] [address] Referral ID Status Reason Start Date Expiration Date V isits Requested Visits Authorized [id number] Closed Auto-Generate d Referral 04/14/2023 05/13/2024 1 1 Reason Comments Med Management Follow-up Source Comments (unrecognize d section and content) In the event this informatio n is protected by the Federal Confidentiality of Alcohol and Drug Abuse Patient Records regulations: The Federal rules restrict any use of the information to criminally investigate or prosecute any alcohol or drug abuse patient.[facility] Center[facility] the event this information is protected by the Federal Confidentiality of Alcohol and Drug Abuse Patient Records regulations: The Federal rules restrict any use of the information to criminally investigate or prosecute any alcohol or drug abuse patient.[facility] CenterIn the event this information is protected by the Federal Confidentiality of Alcohol and Drug Abuse Patient Records regulations: The Federal rules restrict any use of the information to criminally investigate or prosecute any alcohol or drug abuse patient.[facility] Care Teams (unrecognized sec tion and content) City Planning Engineer Relationship Specialty Start Date End Date Minh Bruno Sr. [address] [place] [address] PCP - General Family Medicine 12/20/11 Nasra London CNP [address] [place] [address] Referring Family Medicine 03/20/21 City Planning Engineer Relationship Specialty Start Date End Date Minh Bruno ., DO [address] [place] [address] PCP - General Family Medicine 12/20/11 Nasra London, [employer] [address] [place] [address] Referring Family Medicine 03/20/21 City Planning Engineer Relationship Specialty Start Date End Date Minh Bruno ., DO [address] [place] [address] PCP - General Family Medicine 12/20/11 Nasra London, [employer] [address] [place] [address] Referring Family Medicine 03/20/21 City Planning Engineer Relationship Specialty Start Date End Date Unallocated, Lea Amador MD [address] [place] [address] PCP - General Family Medicine 07/11/24 City Planning Engineer Relationship Specialty Start Date End Date Unallocated, Lea Amador MD [address] [place] [address] PCP - General Family Medicine 07/11/24 City Planning Engineer Relationship Specialty Start Date End Date Unallocated, Lea Amador MD [address] [place] [address] PCP - General Family Medicine 07/11/24 Kait Yign APRN-CLINICAL STAFF RN [address] [facility] [address] [place] [address] PCP - [place] [employer] 08/14/24 City Planning Engineer Relationship Specialty Start Date End Date Unallocated, Lea Amador MD [address] [place] [address] PCP - General Family Medicine 07/11/24 Kait Ying, CHEMIST PHARMACEUTICAL-CLINICAL STAFF RN [address] [facility] [address] [place] [address] PCP - [place] [employer] 08/14/24 City Planning Engineer Relationship Specialty Start Date End Date Unallocated, Lea Amador MD [address] [facility] [place] [address] PCP - General Family Medicine 07/11/24 City Planning Engineer Relationship Specialty Start Date End Date Unallocated, Lea Amador MD [address] [place] [address] PCP - General Family Medicine 07/11/24 City Planning Engineer Relationship Specialty Start Date End Date Unallocated, Lea Amador MD [address] [place] [address] PCP - General Family Medicine 07/11/24 Kait Ying, CHEMIST PHARMACEUTICAL-CLINICAL STAFF RN [address] [facility] [address] [place] [address] PCP - [place] [employer] 11/14/24 Kait Ying, CHEMIST PHARMACEUTICAL-CLINICAL STAFF RN [address] [facility] [address] [place] [address] Nurse Practitioner Psychiatry 11/29/24 City Planning Engineer Relationship Specialty Start Date End Date Unallocated, Lea Amador MD [address] [place] [address] PCP - General Family Medicine 07/11/24 Kait Ying APRN-CNS [address] [facility] [address] [place] [address] PCP - [facility] 11/14/24 Kait Ying APRN-CLINICAL STAFF RN [address] [address] Nurse Practitioner Psychiatry 11/29/24 FOR RECORDS PERTAINING TO PATIENTS WHO ARE OR HAVE BEEN ENROLLED IN A CHEMICAL DEPENDENCY/SUBSTANCEABUSE PROGRAM, SOME INFORMATION MAY BE OMITTED. This clinical summary was aggregated from multiple sources. Caution should be exercised in using it in the provision of clinical care. This summary normalizes information from multiple sources, and as a consequence, information in this document may materially change the coding, format and clinical context of patient data. In addition, data may be omitted in some cases. CLINICAL DECISIONS SHOULD BE BASED ON THE PRIMARY CLINICAL RECORDS. [facility] [employer] [facility]. provides no warranty or guarantee of the accuracy or completeness of information in this document.
== END 2025-01-07 08:41 | disposition home or self-care (01) ==
LOC: RAD 08:42
PROVIDERS: PCP Family Medicine; Visit Provider Family Medicine
DX: M19.041 Primary osteoarthritis, right hand (principal); M25.441 Effusion, right hand
CPT/HCPCS: 73130

== ENCOUNTER 2025-01-22 09:55 | Outpatient (OUT) | payer BC, MEDICAID, SELFPAY ==
--- OUTSIDE RECORDS SUMMARY | 2025-01-22 10:01 | XMS_ITS | CCD ---
Author Organization [facility] Care Team Providers Care Caseworker Name Role Phone MICHAEL RUIZ Unavailable Unavailable MINH BRUNO Unavailable Unavailable HARSHA BELLA Referring Unavailable MINH BRUNO Primary Care Unavailable GAMA MERCEDES Attending Unavailable GAMA MERCEDES Admitting Unavailable IA Procedure Practitioner Unavailab le GAMA MERCEDES Surgeon Unavailable IA Procedure Practitioner Unavailab CHARLI Sagastume Surgeon Unavailable HARESH CAZARES Admitting Unavailable HARESH CAZARES Attending Unavailable MINH BRUNO Referring Unavailable MINH BRUNO Primary Care Unavailable Nasra London Unavailable Rea Soares Unavailable AICHHOLBret, YUN LYDIA Attending Unavailable AICHHOLZ, YUN LYDIA Consulting Unavailable AICHHOLZ, YUN LYDIA Primary Care Unavailable AICHHOLBret, YUN LYDIA Admitting Unavailable Miko Sr.Minh [facility] Provider Nasra London CNP Unavailable [phone] HOUSE MINH LAY [facility] VLADIMIR Lewis Referring Unavailable VLADIMIR WILLIS Attending Unavailable HOUSE SR, MINH [facility] VLADIMIR Lewis Referring Unavailable DONOVAN MINH LAY [facility] Rula Pompa Unavailable House Sr., Minh MOODY [facility] Prov ider Unallocated , Noms Provider Primary Care Provi magdi Stepan PULLER MACHINE-Kait NASCIMENTO Unavailable Unallocated , Noms Provider Primary Care Provi magdi Ana-Nossek PULLER MACHINE-LEDGER POSTER, Kait M Unavailable Ana-Nossek PULLER MACHINE-LEDGER POSTER, Kait M Unavailable ANA-NOSSEK, KAIT M Attending [...] Unavailable HOUSE, DO MINH P Attending Unavailable Allergies Allergy Classification Reported Allergen(s) Allergy Type Date of Onset Reaction(s) Facility (3 sources) predniSONE; Translations: [predniSONE] Drug Allergy 0 [facility] Repository (8 sources) prednisoLONE; Translations: [PREDNISOLONE] Drug Allergy 6 Mental Status Change [facility] Work Phone: (12 sources) Prednisone Allergy to substance 3 [facility] Medications Current Medications Medication Drug Class(es) Dates Sig (Normalized) Sig (Original) [id number] 200 actuat albuterol 0.09 mg/actuat metered dose [...] on above: Take 1 tablet by mirtha th every 8 hours as needed (with food.). [...] Test Name Value Interpretation Reference Range Facility Rad - Other Radiology Report on 01-10-2025 Rad - Other Radiology Report [id number]#[address]16 Progress Note - Nurse Gave 40 mL of Depo-Medrol into patient right deltoid. Patient tolerated well. No adverse reactions. [Electronically Signed on: 01/03/2025 10:46 EST] Lucy Candelaria MA [Verified on: 01/03/2025 10:46 EST] Lucy Candelaria MA [facility] Outside Recordson 07-10-2024 Outside Records [id number]#[address] [facility] [facility]-13-2024 Patient Handout [id number]#1[address] [facility]-12-2024 Patient Handout [id number][facility] Office Visit (ORAVON ) ANDERSONCASA KELLEY ([id number]) 1975 M Date Time Provider Department 06/06/23 9:45 AM VLADIMIR WILLIS During your visit today, we recorded the following information about you: Weight Height 122.5 kg 1.829 m Vladimir Willis DO 06/06/2023 9:50 AM Signed [facility] Office Visit Documentation Note [facility] Sports Medicine Orthopaedic and Rheumatologic [place] HISTORY OF PRESENT ILLNESS (HPI) CHIEF COMPLAINT / REASON FOR VISIT SERVICE DATE: June 06, 2023 PCP: Lydia David CNP Casa Anderson is here today at request of Lydia David CNP specifically for consultation of my opinion in regards to the chief complaint listed below. Correspondence will be shared today via the [employer] electronic health record or through regular mail, [...] Months Frequency: Intermittent Intervention/Comfort measure: Medication Comments: Marlenyve with the presenting complaint of New of [...] results and radiologist's interpretation, available in the [facility] health record. Images were reviewed with the [...] common flexor tendon origin and triceps insertion. Building Architectural Designer: OLINDA ... Last US Elbow - Impression Only US ELBOW RT Collected: 03/01/2016 10:13 AM (Final result) Impression: IMPRESSION: Bilateral distal biceps tendinosis as described. No high-grade tearing. Building Architectural Designer: LAUREN Transcribe Date/Time: Mar 01 2016 10:19A [...] PRP in past Follow up: [place] For [employer] prior to visit: No additional imaging warranted. Written instructions (see patient instructions) and verbal health education given to patient. Patient verbalizes understanding and agrees with the treatment plan. Vladimir Willis D.O. [facility] Orthopaedic and Rheumatologic Curb Worker, [facility] AND [facility]. Program Team Physician, [facility] [employer] Consulting Physician, [place] Katina Recinos, Expediter Clerk [phone] Allergies As of Date: 06/06/2023 Noted Allergy Reaction PREDNISOLONE 11/27/2015 1 - Mental Status Change Date Reviewed: 06/06/2023 Reviewed by: Amarjit Ashby MA - Fully Assessed Reason for Visit: New [[id number]] Primary Visit Diagnosis:Bic (more content not included)... Normal [facility] US ELBOW LEFTon 06-06-2023 [facility] US ELBOW LTon 06-06-2023 US ELBOW LT [...] BICEPS TENDINOSIS WITHOUT HYPEREMIA OR HIGH-GRADE TEAR. Building Architectural Designer: PSCB Transcribe Date/Time: Jun 06 2023 10:56A Dictated by : CASA PHAN MD This examination was interpreted and the report reviewed and electronically signed by: CASA PHAN MD on Jun 06 2023 11:30AM EST [id number] N Normal [facility] XR ELBOW 3V AP/LAT/OTHER LTo n 06-06-2023 [...] common flexor tendon origin and triceps insertion. Building Architectural Designer: PSCB Transcribe Date/Time: Jun 06 2023 8:53A Dictated by : ART LOUIS MD This examination was interpreted and the report reviewed and electronically signed by: ART LOUIS MD on Jun 06 2023 8:54AM EST [id number] N Normal [facility] XR ELBOW SPECIAL VIEWS AP/LA T/OTHER LEFTon 06-06-2023 [facility] 03-28-2023 [facility] Telephone (4CQ) CASA ANDERSON ([id number]) 1975 M Date Time Provider Department 03/28/23 VLADIMIR WILLIS 4CQ During your visit today, we recorded the following information about you: Sue Fleming 03/28/2023 1:18 PM Signed Casa Anderson is calling Vladimir Willis DO today with concern regarding a referral that was faxed on 03/21 from Lydia Deng at [facility]. Wants to confirm it was received. Please call [phone] to confirm. No chief complaint on file. Patient has been identified by name and birthdate. Duration of symptoms: Person calling: Call patient at: [phone] (home) [phone] (work) [phone] (cell) Was an appointment scheduled: Closing statement: Sue Hillaryfrancisco Elías Shearer RN 04/13/2023 11:27 AM Signed No answer upon call. message left. Consult on file. Appointment can be made by calling [phone] Elías Shearer RN, BSN Allergies As of Date: 03/28/2023 Noted Allergy Reaction PREDNISOLONE 11/27/2015 1 - Mental Status Change Date Reviewed: 05/01/2021 Reviewed by: Eligio Hopper) Matt - Fully Assessed Reason for Visit: Appointment [...] Status:Closed by ELÍAS SHEARER on 04/13/23 Normal [facility] TESTOSTERONE, FREE,DIRECT, T Cleopatra 03-23-2023 Free Testosterone(Direct ) 8.7 pg/mL Normal 6.8-21.5 [facility] Comment on above: Result Comment: Perf ormed at: BN Performed By: #### T ESTFRD #### [facility] [address] [address] [address] Tam Caba Testosterone [Mass/Vol] 356 ng/dL Normal 264-916 [facility] Comment on above: Result Comment: Adul t male reference interval is based on a population of healthy nonobese males (BMI <30) between 19 and 39 years old. Travison, et.al. JCEM 2017,102;1295-5611. PMID: [id number]. Performed at: CB Performed By: #### T ESTFRD #### [facility] [address] [address] [address] Tam Caba CBC AUTO DIFFon 03-21-2023 BASO # 0.1 103/ul Normal 0.0-0.1 [facility] Comment on above: Performed By: #### C BC #### [facility] [address] [place] [address] Dr. Tam Caba Basophils/100 WBC (Bld) 0.9 % Normal 0.2-2.0 [facility] Comment on above: Performed By: #### C BC #### [facility] [address] [place] [address] Dr. Tam Caba EO # 0.2 103/ul Normal 0.0-0.7 [facility] Comment on above: Performed By: #### C BC #### [facility] [address] [place] [address] Dr. Tam Caba Eosinophils/100 WBC (Bld) 2.6 % Normal 0.9-7.0 [facility] Comment on above: Performed By: #### C BC #### [facility] [address] [place] [address] Dr. Tam Caba Erythrocyte distribution width (RBC) [Ratio] 12.6 % Normal 11.0-15.0 [facility] Comment on above: Performed By: #### C BC #### [facility] [address] [place] [address] Dr. Tam Caba Hematocrit (Bld) [Volume fraction] 45.2 % Normal 42.0-54.0 [facility] Comment on above: Performed By: #### C BC #### [facility] [address] [place], [place] [id number] Dr. Tam Caba Hemoglobin (Bld) [Mass/Vol] 15.9 g/dL Normal 14.0-18.0 [facility] Comment on above: Performed By: #### C BC #### [facility] [address] [place] [address] Dr. Tam Caba IG # 0.05 10e3/ul Critically high 0.00-0.03 [facility] Comment on above: Performed By: #### C BC #### [facility] [address] [place] [address] Dr. Tam Caba IG % 0.6 % Critically high 0.0-0.5 [facility] Comment on above: Performed By: #### C BC #### [facility] [address] [place] [address] Dr. Tam Caba LYMPH # 1.5 103/ul Normal 1.2-3.8 [facility] Comment on above: Performed By: #### C BC #### [facility] [address] [place] [address] Dr. Tam Caba Lymphocytes/100 WBC (Bld) 18.7 % Critically low 20.5-60.0 [facility] Comment on above: Performed By: #### C BC #### [facility] [address] [place] [address] Dr. Tam Caba MANUAL DIFF REQ NO Normal [facility] Comment on above: Performed By: #### C BC #### [facility] [address] [place] [address] Dr. Tam Caba MCH (RBC) [Entitic mass] 32.4 pg Normal 25.9-34.0 [facility] Comment on above: Performed By: #### C BC #### [facility] [address] [place] [address] Dr. Tam Caba MCHC (RBC) [Mass/Vol] 35.2 g/dL Normal 29.9-35.2 [facility] Comment on above: Performed By: #### C BC #### [facility] [address] [place] [address] Dr. Tam Caba MCV (RBC) [Entitic vol] 92.2 fL Normal 80.0-94.0 [facility] Comment on above: Performed By: #### C BC #### [facility] [address] [place] [address] Dr. Tam Caba MONO # 0.5 103/ul Normal 0.3-0.8 [facility] Comment on above: Performed By: #### C BC #### [facility] [address] [place] [address] Dr. Tam Caba Monocytes/100 WBC (Bld) 6.8 % Normal 1.7-12.0 [facility] Comment on above: Performed By: #### C BC #### [facility] [address] [place] [address] Dr. Tam Caba NEUT # 5.5 103/ul Normal 1.4-6.5 [facility] Comment on above: Performed By: #### C BC #### [facility] [address] [place] [address] Dr. Tam Caba Neutrophils/100 WBC (Bld) 70.4 % Normal 43.0-75.0 [facility] Comment on above: Performed By: #### C BC #### [facility] [address] [place] [address] Dr. Tam Caba Platelet mean volume (Bld) [Entitic vol] 9.5 fL Normal 9.5-13.5 [facility] Comment on above: Performed By: #### C BC #### [facility] [address] [place] [address] Dr. Tam Caba PLT 267 103/ul Normal 150-450 [facility] Comment on above: Performed By: #### C BC #### [facility] [address] [place] [address] Dr. Tam Caba RBC 4.90 106/ul Normal 4.70-6.10 [facility] Comment on above: Performed By: #### C BC #### [facility] [address] [place] [address] Dr. Tam Caba WBC 7.8 103/ul Normal 4.0-11.0 [facility] Comment on above: Performed By: #### C BC #### [facility] [address] [place] [address] Dr. Tam Caba GLYCOHEMOGLOBIN A1Con 2022 ADA RECOMMENDATION SEE BELOW Normal [facility] Comment on above: Result Comment: ADA RECOMMENDED LIMIT 4.0 - 6.0 ADA THERAPEUTIC TARGET < 7.0 ACTION SUGGESTED > 7.0 Performed By: #### A 1C #### [facility] [address] [address] [address] Tam Caba Glucose [Mass/Vol] 97 mg/dL Normal [facility] Comment on above: Performed By: #### A 1C #### [facility] [address] [address] [address] Tam Caba HbA1c (Bld) [Mass fraction] 5.0 % Normal 4.5-6.2 [facility] Comment on above: Performed By: #### A 1C #### [facility] [address] [place] [address] Dr. Tam Caba LIPID PROFILEon 03-21-2023 CHOL-HDL RATIO NORM SEE BELOW Normal [facility] Comment on above: Result Comment: 3.3 - 4.4 LOW RISK 4.4 - 7.1 AVERAGE RISK 7.1 - 11.0 MODERATE RISK >11.0 HIGH RISK Performed By: #### L IPID, TSH, CMP #### [facility] [address] [address] [address] Tam Caba Cholesterol [Mass/Vol] 180 mg/dL Normal <=200 [facility] Comment on above: Performed By: #### L IPID, TSH, CMP #### [facility] [address] [address] [address] Tam Caba Cholesterol in HDL [Mass/Vol] 74 mg/dL Critically high 40-60 [facility] Comment on above: Performed By: #### L IPID, TSH, CMP #### [facility] [address] [address] [address] Tam Caba Cholesterol in LDL [Mass/Vol] 96.8 mg/dL Normal [facility] Comment on above: Performed By: #### L IPID, TSH, CMP #### [facility] [address] [address] [address] Tam Caba Cholesterol.total/C holesterol in HDL [Mass ratio] 2.4 {ratio} Normal [facility] Comment on above: Performed By: #### L IPID, TSH, CMP #### [facility] [address] [address] [address] Tam Caba HDL NORMAL > or = 60 mg/dl - LO W CARDIOVASCULAR RISK <40 mg/dl - HIGH CARDIOVASCULAR RISK Normal [facility] Comment on above: Performed By: #### L IPID, TSH, CMP #### [facility] [address] [address] [address] Tam Caba LDL CALC NORMAL SEE BELOW Normal [facility] Comment on above: Result Comment: <100 mg/dl OPTIMAL 100 - 129 mg/dl NEAR OR ABOVE OPTIMAL 130 - 159 mg/dl BORDERLINE HIGH 160 - 189 mg/dl HIGH >190 mg/dl VERY HIGH Performed By: #### L IPID, TSH, CMP #### [facility] [address] [address] [address] Tam Caba Triglyceride [Mass/Vol] 46 mg/dL Normal <=150 [facility] Comment on above: Performed By: #### L IPID, TSH, CMP #### [facility] [address] [address] [address] Tam Caba VLDL CALC 9.2 mg/dL Normal [facility] Comment on above: Performed By: #### L IPID, TSH, CMP #### [facility] [address] [address] [address] Tam Caba PROF 14(COMP METB)on 023 Albumin [Mass/Vol] 3.7 g/dL Normal 3.4-5.0 [facility] Comment on above: Performed By: #### L IPID, TSH, CMP #### [facility] [address] [address] [address] Tam Caba Albumin/Globulin [Mass ratio] 1.2 {ratio} Normal [facility] Comment on above: Performed By: #### L IPID, TSH, CMP #### [facility] [address] [address] [address] Tam Caba ALP [Catalytic activity/Vol] 86 U/L Normal 46-116 [facility] Comment on above: Performed By: #### L IPID, TSH, CMP #### [facility] [address] [address] [address] Tam Caba ALT [Catalytic activity/Vol] 57 U/L Normal 16-63 [facility] Comment on above: Performed By: #### L IPID, TSH, CMP #### [facility] [address] [address] [address] Tam Caba Anion gap [Moles/Vol] 12.6 mmol/L Normal [facility] Comment on above: Performed By: #### L IPID, TSH, CMP #### [facility] [address] [address] [address] Tam Caba AST [Catalytic activity/Vol] 23 U/L Normal 15-37 [facility] Comment on above: Performed By: #### L IPID, TSH, CMP #### [facility] [address] [place] [address] Dr. Tam Caba Bilirubin [Mass/Vol] 0.5 mg/dL Normal 0.2-1.0 [facility] Comment on above: Performed By: #### L IPID, TSH, CMP #### [facility] [address] [place] [address] Dr. Tam Caba Calcium [Mass/Vol] 8.9 mg/dL Normal 8.5-10.1 [facility] Comment on above: Performed By: #### L IPID, TSH, CMP #### [facility] [address] [address] [address] Tam Caba Chloride [Moles/Vol] 108 mmol/L Critically high 98-107 [facility] Comment on above: Performed By: #### L IPID, TSH, CMP #### [facility] [address] [place] [address] Dr. Tam Caba CO2 [Moles/Vol] 27.3 mmol/L Normal 21.0-32.0 [facility] Comment on above: Performed By: #### L IPID, TSH, CMP #### [facility] [address] [place] [address] Dr. Tam Caba Creatinine [Mass/Vol] 0.99 mg/dL Normal 0.70-1.30 [facility] Comment on above: Performed By: #### L IPID, TSH, CMP #### [facility] [address] [place] [address] Dr. Tam Caba EGFR-AF SCOTTISH >60 Normal >=60 [facility] Comment on above: Performed By: #### L IPID, TSH, CMP #### [facility] [address] [address] [address] Tam Caba EGFR-NON AF SCOTTISH >60 Normal >=60 [facility] Comment on above: Performed By: #### L IPID, TSH, CMP #### [facility] [address] [place] [address] Dr. Tam Caba Globulin (S) [Mass/Vol] 3.1 g/dL Normal [facility] Comment on above: Performed By: #### L IPID, TSH, CMP #### [facility] [address] [place] [address] Dr. Tam Caba Glucose [Mass/Vol] 92 mg/dL Normal 74-106 [facility] Comment on above: Performed By: #### L IPID, TSH, CMP #### [facility] [address] [place] [address] Dr. Tam Caba Potassium [Moles/Vol] 3.9 mmol/L Normal 3.5-5.1 [facility] Comment on above: Performed By: #### L IPID, TSH, CMP #### [facility] [address] [place] [address] Dr. Tam Caba Protein [Mass/Vol] 6.8 g/dL Normal 6.4-8.2 [facility] Comment on above: Performed By: #### L IPID, TSH, CMP #### [facility] [address] [place] [address] Dr. Tam Caba Sodium [Moles/Vol] 144 mmol/L Normal 136-145 [facility] Comment on above: Performed By: #### L IPID, TSH, CMP #### [facility] [address] [place] [address] Dr. Tam Caba Urea nitrogen [Mass/Vol] 9.0 mg/dL Normal 7.0-18.0 [facility] Comment on above: Performed By: #### L IPID, TSH, CMP #### [facility] [address] [place] [address] Dr. Tam Caba Urea nitrogen/Creatinine [Mass ratio] 9.1 mg/mg Normal [facility] Comment on above: Performed By: #### L IPID, TSH, CMP #### [facility] [address] [place] [address] Dr. Tam Caba TSHon 03-21-2023 TSH 1.479 uIU/mL Normal 0.358-3.740 [facility] Comment on above: Performed By: #### L IPID, TSH, CMP #### [facility] [address] [place] [address] Dr. Tam Caba UA RANDOM W/MICROSCOPICon BACTERIA NONE SEEN Normal NONE SEEN [facility] Comment on above: Performed By: #### U AMIC #### [facility] [address] [place] [address] Dr. Tam Caba Bilirubin Ql (U) Negative Normal NEGATIVE [facility] Comment on above: Performed By: #### U AMIC #### [facility] [address] [place] [address] Dr. Tam Caba CAST NONE SEEN Normal NONE SEEN [facility] Comment on above: Performed By: #### U AMIC #### [facility] [address] [place] [address] Dr. Tam Caba Clarity (U) CLEAR Normal CLEAR [facility] Comment on above: Performed By: #### U AMIC #### [facility] [address] [place] [address] Dr. Tam Caba Color (U) LT. YELLOW Normal YELLOW [facility] Comment on above: Performed By: #### U AMIC #### [facility] [address] [place] [address] Dr. Tam Caba Crystals LM Nom (Urine sed) NONE SEEN Normal NONE SEEN [facility] Comment on above: Performed By: #### U AMIC #### [facility] [address] [address] [address] Tam Caba Epithelial cells LM Ql (Urine sed) NONE SEEN Normal NONE SEEN /RARE [facility] Comment on above: Performed By: #### U AMIC #### [facility] [address] [address] [address] Tam Caba Glucose Ql (U) Negative Normal NEGATIVE [facility] Comment on above: Performed By: #### U AMIC #### [facility] [address] [address] [address] Tam Caba Hemoglobin Ql (U) Negative Normal NEGATIVE [facility] Comment on above: Performed By: #### U AMIC #### [facility] [address] [place] [address] Dr. Tam Caba Ketones Ql (U) Negative Normal NEGATIVE [facility] Comment on above: Performed By: #### U AMIC #### [facility] [address] [address] [address] Tam Caba LEUKOCYTES Negative Normal NEGATIVE [facility] Comment on above: Performed By: #### U AMIC #### [facility] [address] [address] [address] Tam Caba MUCOUS NONE SEEN Normal NONE SEEN [facility] Comment on above: Performed By: #### U AMIC #### [facility] [address] [address] [address] Tam Caba Nitrite Ql (U) Negative Normal NEGATIVE [facility] Comment on above: Performed By: #### U AMIC #### [facility] [address] [address] [address] Tam Caba pH (U) 7.5 [pH] Normal 5-9 [facility] Comment on above: Performed By: #### U AMIC #### [facility] [address] [place] [address] Dr. Tam Caba RBC 0-2 Normal 0-2 [facility] Comment on above: Performed By: #### U AMIC #### [facility] [address] [address] [address] Tam Caba SPEC GRAVITY 1.015 Normal 1.005-<=1.025 The [facility] Comment on above: Performed By: #### U AMIC #### [facility] [address] [address] [address] Tam Caba UA PROTEIN Negative Normal NEGATIVE/ TRACE [facility] Comment on above: Performed By: #### U AMIC #### [facility] [address] [address] [address] Tam Caba Urobilinogen Qn (U) 0.2 {Stephanie'U}/dL Normal 0.2 - 1. 0 [facility] Comment on above: Performed By: #### U AMIC #### [facility] [address] [place] [address] Dr. Tam Caba WBC NONE SEEN Normal NONE SEEN [facility] Comment on above: Performed By: #### U AMIC #### [facility] [address] [place] [address] Dr. Tam Caba XR chest 2V*on 03-22-2022 XR chest 2V* [facility] [place] [address] [place] [address] XRay Report Signed Patient: Casa Anderson MR#: [id number] : 1975 Acct:[id number] Age/Sex: 46 / M ADM Date: 03/22/22 Loc: XD Room: Type: [facility] Attending Dr: Rea Soares MD Ordering Provider: [...] Lucie An M.D.03/22/2022 2:32 PM Dictation Location: [place] [address] Transcribed By: [facility] 03/22/221431 Dictated By: Lucie An MD 03/22/22 143 Signed By: 03/22/22 143 Normal [facility] Complete Pulmonary Functiono n 09-28-2021 Complete Pulmonary Function [facility] [place] [address] [place] [address] Pulmonary Function Signed Patient: Casa Anderson MR#: [id number] : 1975 Acct:[id number] Age/Sex: 46 / M ADM Date: 09/28/21 Loc: RT Room: Type: [facility] Attending Dr: Nasra MORENO Ordering Provider: NASRA [...] L or 83% predicted with a normal YJC31-30% 3.36 L/sec or 87% predicted. After administration of bronchodilators, there is no significant change in forced vital capacity nor FEV1 with an insignificant 5% increase in the JZW29-09%. Overall, these studies are essentially normal without [...] MD 09/28/21 1239 Signed By: 09/29/21 0733 [facility] XR chest 2V*on 08-13-2021 XR chest 2V* [facility] Main [address] [address] XRay Report Signed Patient: Casa Anderson MR#: [id number] : 1975 Acct:[id number] Age/Sex: 46 / M ADM Date: 08/13/21 Loc: XDCLY Room: Type: [facility] Attending Dr: Nasra MORENO Ordering Provider: NASRA [...] Lucie An M.D.08/13/2021 4:05 PM Dictation Location: [place] [address] Transcribed By: KOFI 08/13/21 1605 Dictated By: Lucie An MD 08/13/21 1604 Signed By: 08/13/21 1605 [facility] SARS-CoV-2 (COVID-19) RNA NUPUR+probe Ql (Unsp spec) CLINICAL HISTORY: Shortness of breath. COVID + earlier this month. [employer] Other XR chest 2V* [facility] [employer] [facility] [employer] Other XR chest 2V* [facility] [employer] Other XR chest 2V* [address] [facility] [employer] Other XR chest 2V* [place] [address] [place] [employer] Other XR chest 2V* XRay Report [employer] Other XR chest 2V* Signed [employer] Other XR chest 2V* Patient: Casa Anderson MR#: [id number] [employer] Other XR chest 2V* [id number] [employer] Other XR chest 2V* : 1975 Acct:[id number] [employer] Other XR chest 2V* Age/Sex: 46 / M ADM Date: 08/13/21 [employer] Other XR chest 2V* Loc: XDCLY Room: Type: [facility] [employer] Other XR chest 2V* Attending Dr: Nasra [place] [facility] [employer] Other XR chest 2V* Ordering Provider: NASRA LONDON [facility] [employer] Other XR chest 2V* Date of Service: 08/13/21 [employer] Other XR chest 2V* XR/XR chest 2V*: Postobstructive pneumonia [employer] Other XR chest 2V* Copies to: NASRA LONDON [facility] [employer] Other XR chest 2V* PA AND LATERAL CHEST: N [employer] Other XR chest 2V* COMPARISON: 07/30/2021 N [employer] Other XR chest 2V* There are continued bilateral infiltrative changes, similar to the comparison. There is no pleural [employer] Other XR chest 2V* effusion or pneumothorax. The cardiac, hilar and mediastinal silhouettes are within normal limits. [employer] Other XR chest 2V* There is no vascular congestion. The visualized bony thorax is intact. Endplate spurring is [employer] Other XR chest 2V* seen at the spine. [place] [employer] Other XR chest 2V* XR/XR chest 2V* [employer] Other XR chest 2V* IMPRESSION: [employer] Other XR chest 2V* PERSISTENT INFILTRATES, SIMILAR TO THE COMPARISON. [employer] Other XR chest 2V* Impression dictated by: Lucie An M.D.08/13/2021 4:05 PM [employer] Other XR chest 2V* Dictation Location: [facility] [employer] Other XR chest 2V* Transcribed By: KOFI 08/13/21 [facility] [employer] Other XR chest 2V* Dictated By: Lucie An MD 08/13/21 1604 [employer] Other XR chest 2V* Signed By: [employer] Other XR chest 2V* 08/13/21 1605 [employer] Other XR chest 2V*on 07-30-2021 XR chest 2V* [facility] [place] [address] [place] [address] XRay Report Signed Patient: Casa Anderson MR#: [id number] : 1975 Acct:[id number] Age/Sex: 46 / M ADM Date: 07/30/21 Loc: XDCLY Room: Type: [facility] Attending Dr: Nasra MORENO Ordering Provider: NASRA LONDON Date of Service: 07/30/21 XR/XR chest 2V*: SOB (shortness of breath) Copies to: NASRA LONDON XR chest 2V* 07/30/2021 3:05 PM SIGNS [...] Joaquin Pabon M.D.07/30/2021 3:12 PM Dictation Location: [place] [address] Transcribed By: [facility] 07/30/21 1512 Dictated By: Joaquin Pabon II, MD 07/30/21 1509 Signed By: 07/30/21 1512 [facility] FINGER RIGHT MIN 2 [facility] FINGER RIGHT MIN 2 [facility] Department of Radiology [address] [place] [id number] Patient Name: CASA ANDERSON : 1975 Sex: M Age: Race: White Pt. Location: [id number] Patient Status: O Ordered Date: 04/10/2020 1:40:00 [...] reports Electronically signed: Flex Ortiz. Transcribed by: [email or web address], User Resident: FLEX MARCIAL Electronically Signed by: FLEX ORTIZ @ 04/10/2020 04:33 PM I personally read this/these film(s) with this resident Normal [facility] Comment on above: Order Comment: Right index finger wound exploration with Operative Reporton 0 Operative Report MR#: [id number] [facility] Pt. Name: Casa Anderson Room #: [id number] Discharge Date: Birthdate: 1975 OPERATIVE REPORT DATE OF SURGERY: 04/10/2020 SURGEON: Gama Mercedes M.D. MATHEMATICAL ENGINEERING TECHNICIAN: Elli Gamboa MD. PREPROCEDURE DIAGNOSIS: Right index [...] was discharged on vitamin D, Keflex, and Centereach. Electronically Signed by: Gama Mercedes M.D. 04/11/2020 07:30 P Gama Mercedes M.D. I was present for the pagan and critical portions and I was otherwise immediately available to assist. Date Dict: 04/10/2020/04:03 P/Elli Gamboa MD Date Trans: 04/10/2020 07:04 P/aniceto [id number] cc: Minh Bruno D.O. [address] [place] [address] [facility] [address] [place] [facility] POC GLUCOSE LABon 04-10-2020 Glucose [Mass/Vol] 88 mg/dL Normal 70-100 [facility] Comment on above: Performed By: #### 8 5499 #### [facility] [address] [facility]. [address] *SARS-CoV-2 COVID-19on 04-09 [id number] Not Detected Normal Not Detected [facility] Comment on above: Order Comment: The A ptima SARS-CoV-2 assay is a nucleic acid amplification test intended for the qualitative detection of RNA from SARS-CoV-2 isolated and purified from nasopharyngeal (CHECK CASHIER), nasal and oropharyngeal (OP) swab specimens from patients with signs and symptoms of infection who are suspected of COVID-19. Results are for the identification of SARS-CoV-2 RNA. The SARS-CoV-2 RNA is generally detectable in nasopharyngeal and oropharyngeal swabs during the acute phase of infection. The Aptima SARS-CoV-2 Assay on the [employer] and [employer] system is intended for use by laboratory personnel specifically instructed and trained in the operation of the [place] and [employer] Fusion system. The Aptima SARS-CoV-2 assay is [...] information. Performed By: #### 3 1792 #### [facility] [address] [place], [place] [address] APTTon 04-09-2020 aPTT Coag (Bld) [Time] 29.9 s Normal 25.0-35.0 [facility] Comment on above: Order Comment: No: D [...] THIS PURPOSE. Performed By: #### 5 7307, 59636 #### [facility] [address] [place] [address], [facility] BASIC METABOLIC PANELon 05- Calcium [Mass/Vol] 9.6 mg/dL Normal 8.6-10.3 [facility] Comment on above: Order Comment: No: D o not add to previous draw Performed By: #### 3 28, 03031 #### [facility] [address] [place] [address], [facility] Chloride [Moles/Vol] 102 mmol/L Normal 98-107 [facility] Comment on above: Order Comment: No: D o not add to previous draw Performed By: #### 3 727, 08511 #### [facility] [address] [facility] [address], [facility] CO2 [Moles/Vol] 24 mmol/L Normal 21-31 [facility] Comment on above: Order Comment: No: D o not add to previous draw Performed By: #### 3 727, 79476 #### [facility] [address] [facility] [address], [facility] Creatinine [Mass/Vol] 1.11 mg/dL Normal 0.70-1.30 [facility] Comment on above: Order Comment: No: D o not add to previous draw Performed By: #### 3 727, 53780 #### [facility] [address] [place] [id number], [facility] GFR/1.73 sq M predicted among blacks MDRD (S/P/Bld) [Vol rate/Area] mL/min/{1.73_m2} Normal >60 [facility] Comment on above: Order Comment: No: D o not add to previous draw Performed By: #### 3 727, 00755 #### [facility] [address] [place] [address], [facility] GFR/1.73 sq M predicted among non-blacks MDRD (S/P/Bld) [Vol rate/Area] mL/min/{1.73_m2} Normal >60 [facility] Comment on above: Order Comment: No: D o not add to previous draw Performed By: #### 3 727, 76157 #### [facility] [address] [place] [address], [facility] Glucose [Mass/Vol] 84 mg/dL Normal 70-100 [facility] Comment on above: Order Comment: No: D o not add to previous draw Performed By: #### 3 727, 75505 #### [facility] [address] [place] [id number], [facility] Potassium [Moles/Vol] 3.6 mmol/L Normal 3.5-5.1 [facility] Comment on above: Order Comment: No: D o not add to previous draw Performed By: #### 3 727, 64344 #### [facility] [address] [place] [address], [facility] Sodium [Moles/Vol] 135 mmol/L Low 136-145 [facility] Comment on above: Order Comment: No: D o not add to previous draw Performed By: #### 3 727, 23131 #### [facility] [address] [place] [id number], [facility] Urea nitrogen [Mass/Vol] 15 mg/dL Normal 7-25 [facility] Comment on above: Order Comment: No: D o not add to previous draw Performed By: #### 3 727, 94679 #### [facility] [address] [place] [id number], [facility] CBC COMPLETE BLOOD COUNTon 04-09-2020 Erythrocyte distribution width (RBC) [Ratio] 12.6 % Normal 11.5-15.0 [facility] Comment on above: Order Comment: No: D o not add to previous draw Performed By: #### 5 0608 #### [facility] [address] [place] [id number], [facility] Hematocrit (Bld) [Volume fraction] 46.8 % Normal 39.0-50.0 [facility] Comment on above: Order Comment: No: D o not add to previous draw Performed By: #### 5 0608 #### [facility] [address] [place] [address], [facility] Hemoglobin (Bld) [Mass/Vol] 16.3 g/dL Normal 13.0-17.0 [facility] Comment on above: Order Comment: No: D o not add to previous draw Performed By: #### 5 0608 #### [facility] [address] [place] [id number], [facility] MCH (RBC) [Entitic mass] 31.7 pg Normal 27.0-33.0 [facility] Comment on above: Order Comment: No: D o not add to previous draw Performed By: #### 5 0608 #### [facility] [address] [place] [address], [facility] MCHC (RBC) [Mass/Vol] 34.8 g/dL Normal 32.0-35.0 [facility] Comment on above: Order Comment: No: D o not add to previous draw Performed By: #### 5 0608 #### [facility] [address] [place] [address], [facility] MCV (RBC) [Entitic vol] 91.1 fL Normal 82.0-98.0 [facility] Comment on above: Order Comment: No: D o not add to previous draw Performed By: #### 5 0608 #### [facility] [address] [place] [address], [facility] Nucleated RBC/100 WBC (Bld) [Ratio] 0 % Normal 0-0 [facility] Comment on above: Order Comment: No: D o not add to previous draw Performed By: #### 5 0608 #### [facility] [address] [facility] [address], [facility] PLAT CNT 296 10*3/uL Normal 150-400 [facility] Comment on above: Order Comment: No: D o not add to previous draw Performed By: #### 5 0608 #### [facility] [address] [facility] [place] [address], [facility] RBC (Bld) [#/Vol] 5.14 10*6/uL Normal 4.20-5.70 [facility] Comment on above: Order Comment: No: D o not add to previous draw Performed By: #### 5 0608 #### [facility] [address] [facility] [address], [facility] WBC (Bld) [#/Vol] 7.97 10*3/uL Normal 4.00-10.60 [facility] Comment on above: Order Comment: No: D o not add to previous draw Performed By: #### 5 0608 #### [facility] [address] FINGER RIGHT MIN 2 [facility] FINGER RIGHT MIN 2 [facility] Department of Radiology [address] [place] [id number] Patient Name: CASA ANDERSON : 1975 Sex: M Age: Race: White Pt. Location: [facility] Patient Status: E Ordered Date: 04/09/2020 6:55:00 [...] reports Electronically signed: Michael Alamo. Transcribed by: [email or web address], User Resident: MAXINE ARRIETA Electronically Signed by: MICHAEL ALAMO @ 04/09/2020 07:31 PM I personally read this/these film(s) with this resident Normal [facility] Comment on above: Order Comment: Evalu ate for FX, right 2nd phalanx PROTHROMBIN TIMEon 0 INR Coag (PPP) [Relative time] 1.03 {INR} Normal 0.91-1.16 [facility] Comment on above: Order Comment: No: D o not add to previous draw Result Comment: ACCC P RECOMMENDED INR FOR WARFARIN THERAPY ------ [...] CHEST 1995;108:231S-246S. Performed By: #### 5 7307, 22367 #### [facility] [address] PT Coag (PPP) [Time] 13.5 s Normal 12.3-14.8 [facility] Comment on above: Order Comment: No: D o not add to previous draw Result Comment: ALL RESULTS MUST BE INTERPRETED WITH RESPECT TO BLOOD DRAWING ARTIFACT OR DILUTION ERROR OF ANTICOAGULANT AT THE TIME OF SAMPLING. Performed By: #### 5 7307, 63808 #### [facility] [address] TYPE AND SCREENon 04-09-2020 ABO INTERPRETATION O Normal [facility] Comment on above: Performed By: #### 6 2586 #### [facility] [address] RH INTERPRETATION Negative Normal [facility] Comment on above: Performed By: #### 6 2586 #### [facility] [address] [facility] [address] VITAMIN D 25-HYDROXYon 04-09 VITAMIN D 25-OH 18.4 ng/mL Low 30.0-80.0 [facility] Comment on above: Result Comment: >80. 0 Toxicity possible Performed By: #### 3 0228, 40384 #### [facility] [address] Vital Signs Date Time Vital Sign Value Performing Clinician Facility 12-25-2024 14:53-0500 Body mass index (BMI) [Ratio] 36.35 kg/m2 Kait Ana-Nossek [employer]ER Work Phone: [facility] 12-25-2024 14:53-0500 Body weight 121.56 kg Kait Ana-Nossek [employer]ER Work Phone: [facility] 12-25-2024 14:53-0500 Diastolic blood pressure 86 mm[Hg] Kait Ana-Nossek [employer]ER M[employer]INE[employer]LEDGER POSTER Work Phone: [facility] 12-25-2024 14:53-0500 Heart rate 84 /min Kait Ana-Nossek [employer]ER MACHINE[employer]LEDGER POSTER Work Phone: [facility] 12-25-2024 14:53-0500 Systolic blood pressure 140 mm[Hg] Kait Ana-Nossek [employer] MACHINE[employer]LEDGER POSTER Work Phone: [facility] 10-15-2024 16:24-0500 Body mass index (BMI) [Ratio] 35.8 kg/m2 Kait Ana-Nossek [employer]INE[employer]LED[employer] POSTER Work Phone: [facility] 10-15-2024 16:24-0500 Body weight 119.75 kg Kait Ana-Nossek P[employer]ER MACHINE[employer]LEDGER POSTER Work Phone: [facility] 10-15-2024 16:24-0500 Diastolic blood pressure 82 mm[Hg] Kait Ana-Nossek P[employer]ER MACHINE[employer]LEDGER POSTER Work Phone: [facility] 10-15-2024 16:24-0500 Heart rate 74 /min Kait Ana-Nossek P[employer]ER MACHINE[employer]LEDGER POSTER Work Phone: [facility] 10-15-2024 16:24-0500 Systolic blood pressure 124 mm[Hg] Kait Ana-Nossek P[employer]ER MACHINE[employer]LEDGER POSTER Work Phone: [facility] 09-10-2024 16:16-0400 Body mass index (BMI) [Ratio] 36.48 kg/m2 Kait Ana-Nossek [employer]ACHINE[employer]LED[employer] POSTER Work Phone: [facility] 09-10-2024 16:16-0400 Body weight 122.02 kg Kait Ana-Nossek P[employer]ER MACHINE[employer]LEDGER POSTER Work Phone: [facility] 09-10-2024 16:16-0400 Diastolic blood pressure 76 mm[Hg] Kait Ana-Nossek P[employer]ER MACHINE[employer]LEDGER POSTER Work Phone: [facility] 09-10-2024 16:16-0400 Heart rate 66 /min Kait Ana-Nossek P[employer]ER MACHINE[employer]LEDGER POSTER Work Phone: [facility] 09-10-2024 16:16-0400 Systolic blood pressure 126 mm[Hg] Kait Ana-Nossek P[employer]ER MACHINE[employer]LEDGER POSTER Work Phone: [facility] 07-18-2024 15:58-0400 Body mass index (BMI) [Ratio] 34.45 kg/m2 Kait Ana-Nossek P[employer]ER MACHINE[employer]LEDGER POSTER Work Phone: [facility] 07-18-2024 15:58-0400 Body weight 115.21 kg Kait Ana-Nossek P[employer]ER MACHINE[employer]LEDGER POSTER Work Phone: [facility] 07-18-2024 15:58-0400 Diastolic blood pressure 82 mm[Hg] Kait Ana-Nossek P[employer]ER MACHINE[employer]LEDGER POSTER Work Phone: [facility] 07-18-2024 15:58-0400 Heart rate 68 /min Kait Ana-Nossek P[employer]ER MACHINE[employer]LEDGER POSTER Work Phone: [facility] 07-18-2024 15:58-0400 Systolic blood pressure 132 mm[Hg] Kait Ana-Nossek P[employer]ER MACHINE[employer]LEDGER POSTER Work Phone: [facility] 07-08-2023 09:15-0400 Body height 182.88 cm Rula Woods Other [employer] Other 07-08-2023 09:15-0400 Body mass index (BMI) [Ratio] 36.4 kg/m2 Rula Woods Other [employer] Other 07-08-2023 09:15-0400 Body weight 121.75 kg Rula Woods Other [employer] Other 07-08-2023 09:15-0400 Diastolic blood pressure 84 mm[Hg] Rula Woods Other [employer] Other 07-08-2023 09:15-0400 Respiratory rate 18 /min Rula Woods Other [employer] Other 07-08-2023 09:15-0400 SaO2% (BldA) [Mass fraction] 99 % Rula Woods Other [employer] Other 07-08-2023 09:15-0400 Systolic blood pressure 142 mm[Hg] Rula Woods Other [employer] Other 10-07-2021 15:00-0500 Body height 182.88 cm Rea Soares Other [employer] Other 10-07-2021 15:00-0500 Body mass index (BMI) [Ratio] 36.34 kg/m2 Rea Soares Other [employer] Other 10-07-2021 15:00-0500 Body temperature 99 [degF] Rea Salasban Other [employer] Other 10-07-2021 15:00-0500 Body weight 121.56 kg Rea Soares Other [employer] Other 10-07-2021 15:00-0500 Diastolic blood pressure 84 mm[Hg] Rea Salasban Other [employer] Other 10-07-2021 15:00-0500 Respiratory rate 20 /min Rea Soares Other [employer] Other 10-07-2021 15:00-0500 SaO2% (BldA) [Mass fraction] 97 % Rea Soares Other [employer] Other 10-07-2021 15:00-0500 Systolic blood pressure 138 mm[Hg] Rea Soares Other [employer] Other 08-13-2021 15:30-0400 Body height 182.88 cm Nasra Lojaault Other [employer] Other 08-13-2021 15:30-0400 Body mass index (BMI) [Ratio] 34.72 kg/m2 Nasra Ian Other [employer] Other 08-13-2021 15:30-0400 Body temperature 98.6 [degF] Nasra Ian Other [employer] Other 08-13-2021 15:30-0400 Body weight 116.12 kg Nasra Ian Other [employer] Other 08-13-2021 15:30-0400 Diastolic blood pressure 75 mm[Hg] Nasra London Other [employer] Other 08-13-2021 15:30-0400 Respiratory rate 18 /min Nasra London Other [employer] Other 08-13-2021 15:30-0400 SaO2% (BldA) [Mass fraction] 97 % Nasra London Other [employer] Other 08-13-2021 15:30-0400 Systolic blood pressure 112 mm[Hg] Nasra London Other [employer] Other Encounters Encounter Date Encounter Type Care Provider Facility Start: 01-17-2025 ambulatory [facility]H Tee [facility]SE Facilit y:[facility] Start: 01-03-2025 ambulatory MINH P HOUSE Facilit y:[facility] Start: 12-25-2024 End: 12-25-2024 Office outpatient visit 25 minutes Kait Latonya Ana-Nossek [employer]ER Work Phone: [facility] Comment on above: OFE (generalized anx iety disorder) (CMS/HCC); Bipolar affective disorder, currently depressed, moderate (CMS/HCC); Insomnia due to mental condition; ADD (attention deficit disorder) without hyperactivity Start: 12-25-2024 End: 12-25-2024 ambulatory KAIT Hanks ANA-NOSSEK Not Available Start: 12-25-2024 End: 12-25-2024 Bamboo flowsheet Kait Hanks Ana-Nossek [employer]ACHINE[employer]LED[employer] POSTER Work Phone: [facility] Start: 12-25-2024 End: 12-25-2024 Bamboo flowsheet Kait Hanks Ana-Nossek [employer]ER MACHINE[employer]LEDGER POSTER Work Phone: [facility] Start: 10-15-2024 End: 10-15-2024 Office outpatient visit 25 minutes Kait Latonya Ana-Nossek [employer] MACHINE[employer]LEDGER POSTER Work Phone: [facility] Comment on above: Anxiety Start: 10-15-2024 End: 10-15-2024 ambulatory KAIT ESPOSITO Not Available Start: 10-15-2024 End: 10-15-2024 Bamboo flowsheet Kait RodgersNossebelkis [employer]ER MACHINE[employer]LEDGER POSTER Work Phone: [facility] Start: 10-15-2024 End: 10-15-2024 Bamboo flowsheet Kait Perez-Macksek [employer]LEDGER POSTER Work Phone: [facility] Start: 09-10-2024 End: 09-10-2024 Office outpatient visit 25 minutes Kait Perez-Macksebelkis [employer] MACHINE[employer]LEDGER POSTER Work Phone: [facility] Comment on above: Bipolar 1 disorder, depressed, partial remission (CMS/HCC) (Primary Dx); Bipolar disorder, most recent episode manic (CMS/HCC); Insomnia due to mental condition; ADD (attention deficit disorder) without hyperactivity Start: 09-10-2024 End: 09-10-2024 ambulatory KAIT ESPOSITO Not Available Start: 09-10-2024 End: 09-10-2024 Bamboo flowsheet Kait Perez-Macksek [employer]ACH[employer]GER POSTER Work Phone: [facility] Start: 09-10-2024 End: 09-10-2024 Bamboo flowsheet Kait Noesebelkis [employer]ER MACHINE[employer]LEDGER POSTER Work Phone: [facility] Start: 08-07-2024 End: 08-07-2024 ambulatory [facility] [facility]ITAL Facility:[facility] siddhartha Start: 07-18-2024 End: 07-18-2024 Office outpatient visit 25 minutes Kait Perez-Macksek PULLER MACHINE-LEDGER POSTER Work Phone: [facility] Comment on above: Bipolar 1 disorder, depressed, partial remission (CMS/HCC); Mixed obsessional thoughts and acts (CMS/HCC) Start: 07-18-2024 End: 07-18-2024 ambulatory KAIT Latonya ANA-NOSSEK Not Available Start: 07-18-2024 End: 07-18-2024 Bamboo flowsheet Kait Latonya Ana-Nossek PULLER MACHINE-LEDGER POSTER Work Phone: [facility] Start: 07-18-2024 End: 07-18-2024 Bamboo flowsheet Kait Latonya Ana-Nossek PULLER MACHINE-LEDGER POSTER Work Phone: [facility] Start: 06-14-2024 End: 06-14-2024 ambulatory KAIT Latonya ANA-NOSSEK Not Available Start: 06-12-2024 End: 06-12-2024 ambulatory MINH P HOUSE Facility:[facility] Cli siddhartha Start: 05-21-2024 End: 05-21-2024 ambulatory KAIT Latonya ANA-NOSSEK Not Available Start: 05-14-2024 End: 05-14-2024 ambulatory KAIT Latonya ANA-NOSSEK Not Available Start: 04-23-2024 End: 04-23-2024 ambulatory KAIT Latonya ANA-NOSSEK Not Available Start: 02-13-2024 End: 02-13-2024 ambulatory KAIT Latonya ANA-NOSSEK Not Available Start: 07-08-2023 End: 07-08-2023 ambulatory Rula Woods Other [employer] Other Start: 07-08-2023 Office outpatient vi sit 15 minutes Rula Woods [facility] [place] Start: 06-06-2023 End: 06-06-2023 ambulatory VLADIMIR WILLIS Facility:[facility] Start: 06-06-2023 End: 06-06-2023 Subsequent hospital visit by physician [facility] Rej Work Phone: Radiology Comment on above: Biceps tendinitis on left [M75.22] Start: 06-06-2023 End: 06-06-2023 Subsequent hospital visit by physician Xr Ortho [facility] Rej Work Phone: Radiology Comment on above: Pain [R52] Start: 03-28-2023 Telephone encounter Vladimir mcmullen DO Work Phone: [address] [place] [address] Comment on above: Appointment Start: 03-21-2023 End: 03-22-2023 ambulatory ELECTRICAL & INSTRUMENTATION SUPERVISOR LYDIA DAVID Facility: Start: 10-07-2021 End: 10-07-2021 ambulatory Rea Soares Other [employer] Other Start: 10-07-2021 Office outpatient ne w 30 minutes Rea Soares [facility] Start: 10-07-2021 Telephone encounter Lennytravon Soares [facility] Web Marketing Start: 08-13-2021 Office outpatient vi sit 15 minutes Nasra London [facility] [place] Start: 06-19-2020 End: 06-23-2020 Patient encounter procedure HARESH CAZARES Facility:[facility] Start: 04-09-2020 End: 04-10-2020 Patient encounter procedure HARSHA BELLA Facility:[facility] Start: 10-02-2018 Patient encounter procedure MICHAEL RUIZ Facility:[id number] Start: 10-02-2018 Patient encounter procedure Facility:[id number] Procedures Date Procedure Procedure Detail Performing Clinician Start: 06-06-2023 Us lmtd joint/oth nonvasc xtr strux r-t w/img Vladimir Willis DO Work Phone: Start: 06-06-2023 Radex elbow complete minimum 3 views Vladimir Willis DO Work Phone: Start: 04-10-2020 ANESTH LOWER ARM SURGERY CHARLI GALLARDO Start: 04-10-2020 CMPLX RPR F/C/C/M/N/AX/G/H/F GAMA EBRAHEIM Start: 04-10-2020 PIN FINGER DISLOCATION GAMA EBRAHEIM Start: 04-10-2020 REPAIR FINGER TENDON NA FRANCISCA EBRAHEIM Start: 04-09-2020 Antibody screen HARSHA BELLA Comment on above: Performed By: #### 6 [id number] #### [address] Start: 04-18-2012 H/O: vasectomy Admission for reversal of vasectomy Vladimir Willis DO Work Phone: Plan of Treatment Date Care Activity Detail Author Start: 03-05-2025 End: 03-05-2025 Patient encounter procedure 03/05/2025 4:30 PM EDT Office Visit [facility] [address] [place] [address] AnaKait Slaughter, PULLER MACHINE-LEDGER POSTER [address] [place] [address] [facility] Start: 12-25-2024 End: 12-25-2024 Patient encounter procedure 12/25/2024 3:00 PM EST Office Visit [facility] [address] [place] [address] Ana-Kait Magallanes, PULLER MACHINE-LEDGER POSTER [address] [place] [address] Arrived [facility] BH Comment on above: Arrived Start: 12-03-2024 End: 12-03-2024 Patient encounter procedure 12/03/2024 4:30 PM EST Office Visit [facility] [address] [place] [address] Kait Esposito, PULLER MACHINE-LEDGER POSTER [address] [place] [address] [facility] Start: 10-15-2024 End: 10-15-2024 Patient encounter procedure [facility] BH Comment on above: Arrived Start: 09-10-2024 End: 09-10-2024 Patient encounter procedure [facility] BH Comment on above: Arrived Start: 07-18-2024 End: 07-18-2024 Patient encounter procedure 07/18/2024 4:00 PM EDT Office Visit [facility] [address] [place] [address] Kait Esposito, PULLER MACHINE-LEDGER POSTER [address] [place] [address] Arrived [facility] Comment on above: Arrived Start: 07-15-2024 Influenza vaccination Influenza Vacc ine (#1) [facility] Start: 07-15-2023 Influenza vaccination C [facility] Start: 11-14-2022 DEPRESSION ASSESSMENT DEPRESSION ASS ESSMENT [facility] Start: 2020 COLOGUARD (FIT-DNA) COLOGUARD (FIT-D NA) [facility] Start: 2020 Colonoscopy COLONOSCOPY [facility] Start: 2020 COLORECTAL CANCER SCREENING COLORECTAL CANCER SCREENING [facility] Start: [address] COLONOGRAPHY [facility] Start: 2020 DIABETES SCREEN DIABETES SCREEN [facility] Start: 2020 Diabetes Screening Diabetes Screenin g [facility] Start: 2020 FECAL OCCULT BLOOD FECAL OCCULT BLOO D [facility] Start: 2020 SIGMOIDOSCOPY SIGMOIDOSCOPY [facility] Start: 2010 Lipid 1996 panel - S michaela or Plasma Lipid Screening [facility] Start: 2010 LIPID SCREEN LIPID SCREEN [facility] Start: 07-26-2005 Urine microalbumin profile DTaP,Tdap,Td Vaccine (1 - Tdap) [facility] Start: 1994 Urine microalbumin profile DTAP,TDAP,TD (1 - Tdap) [facility] Start: 1993 HEPATITIS C SCREENING HEPATITIS C SC REENING [facility] Start: 1993 HIV SCREENING HIV SCREENING [facility] Start: 1975 COVID-19 VACCINE (#1) COVID-19 VACCI NE (#1) [facility] Start: 1975 HEPATITIS B (1 of 3 - 3-dose series) HEPATITIS B (1 of 3 - 3-dose series) [facility] Start: 1975 Screening for malign ant neoplasm of colon [facility] Immunizations Immunization Date Immunization Notes Care Provider Fa jose juan 05-29-2016 Toradol per 15 mg Nasra London Other [employer] Other Payers Date Payer Category Payer Medicaid [id number] 2022 Medicaid [id number] 2019 [facility] [id number]. [id number] 2019 Unknown [id number]. 1.13.159.2. [id number] 1975 Unknown [id number] 2.16.840.1.766127.3.579.2. 355 1975 Unknown [id number] 2.16.840.1.007510.3.579.2. 356 1975 Unknown [id number] 2.16.840.1.003366.3.579.2. 647 1975 Unknown [id number] 2.16.840.1.295959.3.579.2. 647 1975 Unknown [id number] 2.16.840.1.142005.3.579.2. 593 1975 Unknown [id number] 2.16.840.1.371852.3.579.2. 1259 1975 Unknown [id number] 2.16.840.1.786441.3.579.2. 1259 1975 Unknown [id number] 2.16.840.1.472256.3.579.2. 1259 1975 Unknown [id number] 2.16.840.1.284995.3.579.2. 1259 1975 Unknown [id number] 2.16.840.1.315282.3.579.2. 9 1975 Unknown [id number] 2.16.840.1.742339.3.579.2. 9 1975 Unknown [id number] 2.16.840.1.872982.3.579.2. 9 1975 Unknown [id number] 2.16.840.1.877026.3.579.2. 9 1975 Unknown [id number] 2.16.840.1.596414.3.579.2. 9 1975 Unknown [id number] 2.16.840.1.994450.3.579.2. 8 1975 Unknown [id number] 2.16.840.1.825880.3.579.2. 8 1975 Unknown [id number] 2.16.840.1.399815.3.579.2. 8 1975 Unknown [id number] 2.16.840.1.979389.3.579.2. 718 1959 Unknown [id number] Unknown [id number] Social History Date Type Detail Facility Start: 07-01-2022 End: 12-25-2024 Sex Assigned At [facility] Other Start: 04-18-2012 [facility] Work Phone: History of tobacco use Current smoker [facility] Work Phone: Start: 04-18-2012 End: 03-22-2023 Tobacco use and exposure Smokeless tobacco non-user [facility] Work Phone: Start: 07-01-2022 Alcohol intake Current drinke r of alcohol (finding) [facility] Start: 04-18-2012 Alcohol Comment Rarely [facility] Start: 1975 Sex Assigned At Not on file [facility] Start: 07-01-2022 End: 12-25-2024 History of Social function [facility] National Score (1-100), lower number is lower risk 74 [facility] Start: 03-22-2023 Tobacco smoking stat us MAIS Never smoked tobacco [facility] Start: 07-18-2024 End: 12-25-2024 Alcoholic beverage intake Ex-drinker (finding) [facility] How often to you hav e a drink containing alcohol? Never [facility] Start: 05-24-2023 Alcohol Comment occasional francisco rgy drink or pop [facility] Clinical Notes 08-13-2021 to 10-15-2024 Kait Esposito, [facility] - 10/15/2024 4:30 PM Summer Esposito, [facility] - 12/25/2024 4:30 PM Summer Esposito, [facility] - 09/10/2024 4:30 PM EDT Note Date [...] Diagnosis Date ADHD (attention deficit hyperactivity disorder) ([facility]) Anxiety Bipolar disorder ([facility]) Chronic otitis externa of right ear H/O [...] and Time Memory/Concentration Short term intact and fci intact Insight/Judgement Good OBJECTIVE: Visit Vitals Smoking [...] up 6 weeks documented in this encounter [facility] 10-14-2024 History of Presen t illness Narrative [...] Diagnosis Date ADHD (attention deficit hyperactivity disorder) ([facility]) Anxiety Bipolar disorder ([facility]) Chronic otitis externa of right ear H/O [...] up 2 months documented in this encounter [facility] 09-10-2024 History of Presen t illness Narrative [...] Diagnosis Date ADHD (attention deficit hyperactivity disorder) ([facility]/H[facility]) Anxiety Bipolar disorder ([facility]) Chronic otitis externa of right ear H/O [...] and Time Memory/Concentration Short term intact and fci intact Insight/Judgement -fair OBJECTIVE: Visit Vitals BP [...] 30min 5 weeks documented in this encounter [facility] 07-18-2024 History of Presen t illness Narrative [...] Diagnosis Date ADHD (attention deficit hyperactivity disorder) ([facility]) Anxiety Bipolar disorder ([facility]) Chronic otitis externa of right ear H/O [...] and Time Memory/Concentration Short term intact and termite renewal inspector intact Insight/Judgement Fair OBJECTIVE: Visit Vitals Smoking [...] 32min F/U 2months documented in this encounter [facility] 07-08-2023 Evaluation note Encounter Date Diagnosis Assessment [...] appearance. Patient verbalized understanding of treatment plan. [employer] Other 07-24-2023 NoteHNO ID: [id number] Author: Vladimir Willis, DO Service: ? Author Type: Physician Type: Progress Notes Filed: 06/06/2023 9:50 AM Note Text: [facility] Office Visit Documentation Note [facility] Sports Medicine Orthopaedic and Rheumatologic [place] HISTORY OF PRESENT ILLNESS (HPI) CHIEF COMPLAINT / REASON FOR VISIT SERVICE DATE: June 06, 2023 PCP: Lydia David CNP Casa Anderson is here today at request of Lydia David CNP specifically for consultation of my opinion in regards to the chief complaint listed below. Correspondence will be shared today via the [employer] electronic health record or through regular mail, [...] Months Frequency: Intermittent Intervention/Comfort measure: Medication Comments: Charan with the presenting complaint of New of [...] results and radiologist's interpretation, available in the [facility] health record. Images were reviewed with the [...] common flexor tendon origin and triceps insertion. Building Architectural Designer: LAURENB ... Last US Elbow - Impression Only US ELBOW RT Collected: 03/01/2016 10:13 AM (Final result) Impression: IMPRESSION: Bilateral distal biceps tendinosis as described. No high-grade tearing. Building Architectural Designer: LAUREN Transcribe Date/Time: Mar 01 2016 10:19A [...] PRP in past Follow up: [place] For [employer] prior to visit: No additional imaging warranted. Written instructions (see patient instructions) and verbal health education given to patient. Patient verbalizes understanding and agrees with the treatment plan. Vladimir Willis D.O. [facility] Orthopaedic and Rheumatologic Curb Worker, [facility] AND T.E.A.M. Program Team Physician, [facility] Baseball Club Consulting Physician, [facility] [employer], Expediter Clerk [phone] 06-06-2023 NoteHNO ID: [id number] Author: Ofelia Barfield RT(R) Service: Radiology Author [...] BY: RT Jessica(R) June 06, 2023 8:48 [facility]07-24-2023 History of Present illness Narrative* Ofelia [...] 06, 2023 8:48 AM [facility] Miscellaneous Notes* Telephone Encounter - Elaís Shearer RN - 04/13/2023 11:25 AM EDT No answer upon call. MC message left. Consult on file. Appointment can be made by calling [phone] Elías Shearer RN, BSN * Telephone Encounter - Sue Fleming - 03/28/2023 1:17 PM EDT Casa Anderson is calling Vladimir Willis DO today with concern regarding a referral that was faxed on 03/21 from Lydia Deng at [facility]. Wants to confirm it was received. Please call [phone] to confirm. No chief complaint on file. Patient has been identified by name and birthdate. 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 diagnosed with COViD pneumonia in ER [employer] Other Evaluation noteNo [facility] [employer] Other Evaluation note* Diagnosis Pain Generalized pain [facility] Diagnosis Biceps tendinitis on left Chronic pain of left elbow [facility]* Diagnosis Bipolar 1 disorder, depressed, partial remission ([facility])- Primary Bipolar disorder, most recent episode manic ([facility]) Insomnia due to mental condition Unspecified nonpsychotic [...] vasectomy reversal Hospitalization History see above surgical [employer] Other History general Narrative - Reported* Type Description Date Medical History Anxiety and depression Medical History bipolar Medical History cold sores Medical History COVID-19 Surgical History knee arthroscopy 2014 Surgical History rotator cuff tear repair Surgical History cholecystectomy Surgical History appendectomy Surgical History vasectomy reversal Hospitalization History see above surgical [employer] Other Reason for referral (narrative)* Reason post covid pneu monia Diagnosis 1 COVID-19 (U07.1) Diagnosis 2 Pneumonia due to Cor onavirus disease 2018 (J12.82) Referral Organization [facility] Family Lidia De Santiago Referring Provider First Name Nasra Referring Provider Last Name Ian Referring Provider Specialty Nurse Pract itioner Referred Organization [facility] Referred Provider Rea Soares Referred Address [address] [place] [id number] Referred Provider Specialty Pulmonary Di seases Referral Priority Routine General Notes Fore, Shanti M 021 10:33:44 AM >Received today and sent P2P [employer] Other Resugm for referral (narrative)* Diagnostic Procedure Only (Routine) - Closed Specialty Diagnoses / Procedures Referred By Sinan diaz Referred To Contact XR IMAGING Diagnoses Pain Procedures XR ELBOW SPECIAL VIEWS AP/LAT/OTHER LEFT RADEX ELBOW COMPLETE MINIMUM [address] [place] [address] [place] [address] [place] [address] Referral ID Status Reason Start Date Expiration Date V isits Requested Visits Authorized [id number] Closed Auto-Generate d Referral 04/14/2023 05/13/2024 1 1 [facility] for referral (narrative)* Diagnostic Procedure Only (Routine) - Closed Specialty Diagnoses / Procedures Referred By Contac t Referred To Contact US IMAGING Diagnoses Biceps tendinitis on left Chronic pain of left elbow Procedures US ELBOW LEFT US LMTD JOINT/OTH NONVASC XTR STRUX R-T W/[place] [address] [place] [address] [place] [address] Referral ID Status Reason Start Date Expiration Date V isits Requested Visits Authorized [id number] Closed Auto-Generate d Referral 06/06/2023 07/05/2024 1 1 [facility] for visit Narrative* Diagnostic Procedure Only (Routine) - Closed Specialty Diagnoses / Procedures Referred By Contac t Referred To Contact US IMAGING Diagnoses Biceps tendinitis on left Chronic pain of left elbow Procedures US ELBOW LEFT US LMTD JOINT/OTH NONVASC XTR STRUX R-T W/[place] [address] [place] [address] [place] [address] Referral ID Status Reason Start Date Expiration Date V isits Requested Visits Authorized [id number] Closed Auto-Generate d Referral 06/06/2023 07/05/2024 1 1 [facility] Summary Purpose Family History No Family History [...] Found Hospital Course Note MR#: [id number] [facility] Pt. Name: Casa Anderson Admitted: 04/09/2020 [...] He was given prescriptions for vitamin D, Centereach, and Keflex at discharge. Electronically Signed by: Gama Mercedes M.D. 04/11/2020 07:30 P (more content not included)... Additional Source Comments (unrecognized sect ion and content) No Status Records FoundNo Status Records FoundNo Status Records FoundNo Status Records FoundNo Status Records FoundNo Status Records FoundNo Status Records FoundNo Status Records Found INFORMATION SOURCE (unrecogn ized section and content) DATE CREATED AUTHOR 10/23/[address] [facility] DATE CREATED AUTHOR AUTHOR'S ORGANIZ ATION 10/23/2018 [facility] DATE CREATED AUTHOR AUTHOR'S ORGANIZ ATION 06/22/2020 [facility] DATE CREATED AUTHOR AUTHOR'S ORGANIZ ATION 07/07/2022 [facility] DATE CREATED AUTHOR AUTHOR'S ORGANIZ ATION 03/24/2023 [facility] DATE CREATED AUTHOR AUTHOR'S ORGANIZ ATION 06/06/2023 [facility] DATE CREATED AUTHOR AUTHOR'S ORGANIZ ATION 12/27/2024 [facility] dical Specialists [facility] DATE CREATED AUTHOR AUTHOR'S ORGANIZ ATION 01/19/2025 [facility] REASON FOR VISIT (unrecogniz ed section and content) Reason Comments Appointment Reason Comments Radio Gen RMP Specialty Diagnoses / Procedures Referred By Contac t Referred To Contact XR IMAGING Diagnoses Pain Procedures XR ELBOW SPECIAL VIEWS AP/LAT/OTHER LEFT RADEX ELBOW COMPLETE MINIMUM [address] [place] [address] [place] [address] [place] [address] Referral ID Status Reason Start Date Expiration Date V isits Requested Visits Authorized [id number] Closed Auto-Generate d Referral 04/14/2023 05/13/2024 1 1 Reason Comments Med Management Follow-up Source Comments (unrecognize d section and content) In the event this informatio n is protected by the Federal Confidentiality of Alcohol and Drug Abuse Patient Records regulations: The Federal rules restrict any use of the information to criminally investigate or prosecute any alcohol or drug abuse patient.[facility] Hospital[facility] the event this information is protected by the Federal Confidentiality of Alcohol and Drug Abuse Patient Records regulations: The Federal rules restrict any use of the information to criminally investigate or prosecute any alcohol or drug abuse patient.[facility] HospitalIn the event this information is protected by the Federal Confidentiality of Alcohol and Drug Abuse Patient Records regulations: The Federal rules restrict any use of the information to criminally investigate or prosecute any alcohol or drug abuse patient.[facility] Care Teams (unrecognized sec tion and content) Caseworker Relationship Specialty Start Date End Date Minh Bruno Sr. [address] [facility] [place] [address] PCP - General Family Medicine 12/20/11 Nasra London CNP [address] [place] [address] Referring Family Medicine 03/20/21 Caseworker Relationship Specialty Start Date End Date Minh Bruno Sr., DO [address] [place] [place] [address] PCP - General Family Medicine 12/20/11 Nasra London, YUN [address] [place] [address] Referring Family Medicine 03/20/21 Caseworker Relationship Specialty Start Date End Date Minh Bruno Sr., DO [address] [place] [place] [address] PCP - General Family Medicine 12/20/11 Nasra London CNP [address] [place] [address] Referring Family Medicine 03/20/21 Caseworker Relationship Specialty Start Date End Date Unallocated, Lea Amador MD [address] [place] [address] PCP - General Family Medicine 07/11/24 Caseworker Relationship Specialty Start Date End Date Unallocated, [place] [address] PCP - General Family Medicine 07/11/24 Caseworker Relationship Specialty Start Date End Date Unallocated, Lea Amador MD [address] [place] [address] PCP - General Family Medicine 07/11/24 Kait Esposito, PULLER MACHINE-[facility] [address] [facility] [address] [place] [address] PCP - [place] [employer] 08/14/24 Caseworker Relationship Specialty Start Date End Date Unallocated, Lea Amador MD [facility] [place] [address] PCP - General Family Medicine 07/11/24 Kait Esposito, PULLER MACHINE-[facility] [address] [facility] [address] [place] [address] PCP - [place] [employer] 08/14/24 Caseworker Relationship Specialty Start Date End Date Unallocated, Lea Amador MD [facility] [place] [address] PCP - General Family Medicine 07/11/24 Caseworker Relationship Specialty Start Date End Date Unallocated, Lea Amador MD [facility] [place] [address] PCP - General Family Medicine 07/11/24 Caseworker Relationship Specialty Start Date End Date Unallocated, Lea Amador MD [address] [place] [address] PCP - General Family Medicine 07/11/24 Kati Esposito, PULLER MACHINE-LEDGER POSTER [address] [facility] [address] [place] [address] PCP - [place] [employer] 11/14/24 Kait Esposito, PULLER [employer]GER [employer]ER [address] [facility] [address] [place] [address] Nurse Practitioner Psychiatry 11/29/24 Caseworker Relationship Specialty Start Date End Date Unallocated, Noms Perry, [place] [address] PCP - General Family Medicine 07/11/24 Kait Esposito, PULLER MACHINE[employer]LEDGER POSTER [address] [facility] [address] [place] [address] PCP - [place] [employer] 11/14/24 Kait Esposito, PULLER MACH[employer]LEDGER POSTER [address] [address] Nurse Practitioner Psychiatry 11/29/24 FOR RECORDS PERTAINING [...] BE BASED ON THE PRIMARY CLINICAL RECORDS. [facility]. provides no warranty or guarantee of the accuracy or completeness of information in this document.
[2025-01-22 10:28] LABS: Uric Acid 4.1 mg/dL (3.5-7.2)
== END 2025-01-22 09:56 | disposition home or self-care (01) ==
PROVIDERS: PCP Family Medicine; Visit Provider Family Medicine
DX: M10.9 Gout, unspecified (principal)
CPT/HCPCS: 36415; 84550